=== PATIENT | female | born 1965 | race Caucasian/White ===

== ENCOUNTER → 2016-11-25 | Outpatient (CLI) | payer MEDICARE, MEDICAID ==
[~2016-11-25] MED LIST: AMOXICILLIN 50500 MG PO; ASPIRIN 81MG TA81 MG PO; ATENOLOL25 MG PO; ATENOLOL50 MG PO; AUGMENTIN 875 M1 TAB PO; BACTRIM DS 8001 TA1 PO; BRIMONIDINE 0.2%5 ML OP; CIPRO 250MG TA250 MG PO; CIPRO 500MG TA500 MG PO; CORTISPORIN (GE10 M1 OT; FLEXERIL5 MG PO; HABITROL21 MG/24 H TD; LIPITOR80 MG PO; LISINOPRIL 20MG20 MG NG; LORTAB 5/500 501 TAB PO; MACROBID 100MG100 MG PO; MEDROL 4MG. DOSE4 MG PO; MULTI VITAMINS1 TA1 PO; NAPROSYN 500MG500 MG PO; NAPROXEN250 MG PO; NEURONTIN 300M300 MG PO; PERCOCET 10 MG1 EACH PO; PERCOCET 5/3251 EACH PO; PHENERGAN 25MG.25 M1 PO; PRILOSEC40 MG PO; PROMETHAZINE12.5 M1 PO; SIMVASTATIN10 MG PO; TRAMADOL 50MG T50 MG PO; TRAZODONE100 MG PO; VITAMIN D1000 IU PO; VITAMIN D5000 IU PO; XANAX 1MG TABLET1 MG PO; XANAX2 MG PO; ZOCOR20 MG PO
[2016-11-25 16:53] LABS: AMPHETAMINES/METAMPHETAMINES NEGATIVE ng/mL (<1000)
== END ==
LOC: LAB 14:08
PROVIDERS: Nurse Practitioner Family
DX: F41.9 Anxiety disorder, unspecified (principal); Z79.899 Other long term (current) drug therapy

== ENCOUNTER 2017-03-10 17:38 | Emergency (ER) | payer MEDICARE, MEDICAID ==
[~2017-03-10] VITALS: Ht 170.2 cm; Wt 99.8 kg
[~2017-03-10 17:38] MED LIST changes: +AUGMENTIN 875-1 EACH PO; +CIPRODEX 0.3%-7.5 ML OT
--- OUTSIDE RECORDS SUMMARY | 2017-03-10 18:24 | External Medical Summary Rpt ---
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 AREAS 5 NAL REHAB D INES OTH THAN ASS[place] [address] COMBINED COMBINED THYROID 5 PHYSICIAN PHYSICIAN STIMULATI S LA S LA NG HORMONE TSH BLOOD 36487 COMBINED COMBINED COUNT 5 PHYSICIAN PHYSICIAN COMPLETE S LA S LA AUTO&AUTO DIFRNTL WBC SUSCEPTIB 23021 COMBINED COMBINED ILITY 5 PHYSICIAN PHYSICIAN STUDY S LA S LA ANTIMICRO BIAL DISK METHOD CULTURE 62831 COMBINED COMBINED BCT 5 PHYSICIAN PHYSICIAN ISOL&PRSM S LA S LA PTV ID ISOLATE EA URINE ELECTRICA A4595 EMPI INC EMPI INC L 4 STIMULATO R SUPPLIES 2 LEAD PER MONTH VISUAL 90704 SORAYA LOPEZ ERICKA FIELD XM 4 VISION UNI/BI CENTER W/INTERP EXTENDED EXAM FUNDUS 65387 SORAYA LIRA PHOTOGRAP 4 VISION VISION HY CENTER CENTER W/INTERPR ETATION & REPORT OPHTH 22374 SORAYA MYLES MEDICAL 4 VISION ANG XM&EVAL CENTER COMPRE NEW PT 1/> VST DETERMINA 28546 SORAYA MYLES TION 4 VISION ANG REFRACTIV CENTER E STATE DIAGNOSTI G0204 [place] JAVIER Guallpa 4 MEDICAL JASSON MAMMOGRAP IMAGING HY INCL ASS CAD WHEN PERF; BILAT ARTHROCEN 52659 [facility] TESIS 4 PHYSICIAN PHYSICIAN ASPIR&/IN S GROUP S GROUP J MAJOR JT/BURSA W/O US INJ J0702 [facility] PETTEY BETAMETHA 4 PHYSICIAN SUNIL SIMON S GROUP ACETATE & PHOSPHATE 3 [place] [address] [facility]PS PICKLESIM SURG 4 VITOR & ER [facility] PATHOLOGY [facility] GROSS&[place] [address] [facility] DINEROON INFUSION 4 [facility] THERAPY INC [place] [address] [facility] [facility] INFUSION 4 [facility] THERAPY/P INC INC ROPHYLAXI S /DX 1ST TO 1 [place] [address] [facility], SURG 4 [facility] PATHOLOGY GROSS&AREN ROSCOPIC EXAM COMPUTER- 86999 [place] JAVIER GONSALVES 4 MEDICAL JASSON DETECTION IMAGING DX ASS MAMMOGRAP HY DIAGNOSTI G0204 [facility] DUNCAN C 4 [facility] MAMMOGRAP INC INC HY INCL CAD WHEN PERF; BILAT RADEX 74650 [facility] DUNCAN HIPS 4 [facility] BILATERAL INC INC 2 VIEWS ANTEROPOS T PELVIS RADIOLOGI 24150 [facility] Gu[facility]pa 4 MEDICAL [facility] EXAMINATI IMAGING ON KNEE 3 ASS VIEWS ELECTRICA A4595 EMPI INC EMPI INC L 4 STIMULATO R SUPPLIES 2 LEAD PER MONTH ELECTRICA A4595 EMPI INC EMPI INC L 4 STIMULATO R SUPPLIES 2 LEAD PER MONTH INJECTION J0696 SWETHA POSADA 4 TRAVIS TRAVIS CEFTRIAXO NE SODIUM PER 250 MG ELECTRICA A4595 EMPI INC EMPI INC L 4 STIMULATO R SUPPLIES 2 LEAD PER MONTH DIAGNOSTI G0206 [place] DUNCAN C 3 [facility] MAMMOGRAP INC INC HY INCL CAD WHEN PERF; UNI EXTERNAL 93929 [facility] DUNCAN ECG 3 [facility] SCANNING INC INC ANALYSIS REPORT XTRNL ECG 68726 [place] LANDRY JR 3 [facility] S RHYTHM P W/I&R UP TO 48 HRS XTRNL ECG 12836 D[place] DUNCAN & 48 HR 3 [facility] RECORDING INC INC ECHO 55710 DAK[facility] DUNCAN TTHRC R-T 3 [facility] 2D INC INC W/WOM-MOD E COMPL SPEC&COLR D ECG 45443 JONNY IVY TRAVIS ROUTINE 3 [facility] W/LEAST PSC 12 LDS W/I&R NJX 76990 [facility] DX/THER 3 N N SBST [facility] EPIDURAL/ HOSPITA HOSPITA SUBARACH LUMBAR/SA CRAL THERAPEUT 15397 [facility] DUNCAN IC 3 [facility] INJECTION [place] [address] [place] DUNCAN INFUSION 3 [facility] THERAPY/P INC INC ROPHYLAXI S /DX 1ST TO 1 HR INJECTION J2405 [facility] DUNCAN 3 [facility] ONDANSETR INC INC ON HCL PER 1 MG GONADOTRO 78788 D[place] DUNCAN PIN 3 [facility] [place] [address] CHIPPS SEBAS SURG 3 VITOR & YARIEL PATHOLOGY DUBILIER GROSS&AREN ROSCOPIC EXAM ANES 98051 [facility] INTEG 3 ANESTH EXTREMITI OF THE ES ANT BLUE TRUNK & PERINEUM NOS EXC 38202 [facility] SOHAM CYST/ABER 3 PHYSICIAN ALLISON MUELLER BREAST TISSUE OPEN 1/> LESION BASIC 88794 DAK[place] DUNCAN METABOLIC 3 [facility] PANEL INC INC CALCIUM TOTAL ECG 02353 D[place] DUNCAN ROUTINE 3 [facility] ECG INC INC W/LEAST 12 LDS TRCG ONLY W/O I&R BLOOD 83269 DAKOTA DUNCAN COUNT 3 [facility] HOSP COMPLETE INC INC AUTO&AUTO DIFRNTL WBC COLLECTIO 87364 DAKOTA DUNCAN N VENOUS 3 [facility] HOSP BLOOD INC INC VENIPUNCT URE ECG 15193 DAKOTA MELISSAMIJemima ROUTINE 3 [facility] W/LEAST P 12 LDS I&R ONLY DIAGNOSTI G0204 DAK[place] DUNCAN C 3 [facility] HOSP MAMMOGRAP INC INC HY INCL CAD WHEN PERF; BILAT US BREAST 18583 DAKOTA DUNCAN REAL 3 [facility] HOSP TIME INC INC W/IMAGE DOCUMENTA TION RADIOLOGI 11618 [place] JAVIER Guallpa 3 MEDICAL JASS[facility] EXAMINATI IMAGING ON CHEST ASS SINGLE VIEW FRONTAL RADEX 26780 DAKOTA DUNCAN HAND 2 [facility] HOSP MINIMUM 3 INC INC VIEWS NJX 76588 [facility] DX/THER 2 N N SBST [facility] EPIDURAL/ HOSPITA HOSPITA SUBARACH LUMBAR/SA CRAL INJECTION J1040 [facility] 2 N N METHYLPRE [facility] DNISOLONE HOSPITA HOSPITA ACETATE 80 MG INJECTION J2250 [facility] 2 N N MIDAZOLAM [facility] HCL PER HOSPITA HOSPITA 1 MG RADEX 89395 [facility] SPINE 1 2 N N VIEW [facility] SPECIFY HOSPITA HOSPITA LEVEL FLUOR 42171 [facility] NEEDLE/CA 2 N N TH [facility] SPINE/PAR HOSPITA HOSPITA [place] [address] PATHOLOGY PATHOLOGY SURG 2 & & PATHOLOGY CYTOLOGY CYTOLOGY LAB LAB GROSS&AREN ROSCOPIC EXAM DSTR 05268 [facility] NROLYTC 2 N N AGNT [facility] PARVERTEB HOSPITA HOSPITA FCT SNGL LMBR/SACR AL INJECTION J3010 [facility] FENTANYL 2 N N CITRATE [facility] 0.1 MG HOSPITA HOSPITA FLUOR 89876 [facility] NEEDLE/CA 2 N N TH [facility] SPINE/PAR HOSPITA HOSPITA ASPINAL DX/THER ADDON DSTR 01758 [facility] NROLYTC 2 N N AGNT [facility] PARVERTEB HOSPITA HOSPITA FCT ADDL LMBR/SACR AL INJECTION J2250 [facility] 2 N N MIDAZOLAM [facility] HCL PER HOSPITA HOSPITA 1 MG RADEX 13432 [facility] SPINE 2 N N LUMBOSACR COMMUNITY COMMUNITY AL 2/3 HOSPITA HOSPITA VIEWS RADEX 81938 [facility] SPINE 2 N N LUMBOSACR COMMUNITY COMMUNITY AL HOSPITA HOSPITA MINIMUM 4 VIEWS DSTR 75339 [facility] NROLYTC 2 N N AGNT [facility] PARVERTEB HOSPITA HOSPITA FCT ADDL LMBR/SACR AL FLUOR 12013 [facility] NEEDLE/CA 2 N N TH [facility] SPINE/PAR HOSPITA HOSPITA ASPINAL DX/THER ADDON INJECTION J3010 [facility] FENT[facility]L 2 N N CITRATE [facility] 0.1 MG HOSPITA HOSPITA DSTR 59494 [facility] NROLYTC 2 N N AGNT [facility] PARVERTEB HOSPITA HOSPITA FCT SNGL LMBR/SACR AL FLUOR 85021 [facility] NEEDLE/CA 1 N N TH [facility] SPINE/PAR HOSPITA HOSPITA ASPINAL DX/THER [place] NJX 27755 [facility] DX/THER 1 AGT PVRT FACET JT LMBR/SAC 1 LEVEL NJX 69919 [facility] DX/THER 1 AGT PVRT FACET JT LMBR/SAC 2ND LEVEL RADEX 52218 [facility] SPINE 1 1 N N VIEW [facility] SPECIFY HOSPITA HOSPITA LEVEL NJX 03611 [facility] N[facility] DX/THER 1 AGT PVRT FACET JT LMBR/SAC 3+ LEVEL THERAPEUT 38365 PROFESSIO CROSSFIEL IC PX 1/> 1 NAL REHAB D INES AREAS ASSOC EACH 15 PSC MIN EXERCISES THERAPEUT 95718 PROFESSIO CROSSFIEL IC PX 1/> 1 NAL REHAB D INES AREAS ASSOC EACH 15 PSC MIN EXERCISES E-STIM G0283 PROFESSIO CROSSFIEL 1/> AREAS 1 NAL REHAB D INES OTH THAN ASSOC WND CARE PSC PART TX PLAN E-STIM G0283 PROFESSIO CROSSFIEL 1/> AREAS 1 NAL REHAB D INES OTH THAN ASSOC WND CARE PSC PART TX PLAN THERAPEUT 64350 PROFESSIO CROSSFIEL IC PX 1/> 1 NAL REHAB D INES AREAS ASSOC EACH 15 PSC MIN EXERCISES THERAPEUT 87430 PROFESSIO CROSSFIEL IC PX 1/> 1 NAL REHAB D INES AREAS ASSOC EACH 15 PSC MIN EXERCISES MANUAL 54828 PROFESSIO CROSSFIEL THERAPY 1 NAL REHAB D INES TQS 1/> ASSOC REGIONS PSC EACH 15 MINUTES THERAPEUT 72317 PROFESSIO CROSSFIEL IC PX 1/> 1 NAL REHAB D INES AREAS ASSOC EACH 15 PSC MIN EXERCISES E-STIM G0283 PROFESSIO CROSSFIEL 1/> AREAS 1 NAL REHAB D INES OTH THAN ASSOC WND CARE PSC PART TX PLAN E-STIM G0283 PROFESSIO CROSSFIEL 1/> AREAS 1 NAL REHAB D IENS OTH THAN ASSOC WND CARE PSC PART TX PLAN THERAPEUT 18965 PROFESSIO CROSSFIEL IC PX 1/> 1 NAL REHAB D INES AREAS ASSOC EACH 15 PSC MIN EXERCISES THERAPEUT 79624 PROFESSIO CROSSFIEL IC PX 1/> 1 NAL REHAB D INES AREAS ASSOC EACH 15 PSC MIN EXERCISES E-STIM G0283 PROFESSIO CROSSFIEL 1/> AREAS 1 NAL REHAB D INES OTH THAN ASSOC WND CARE PSC PART TX PLAN E-STIM G0283 PROFESSIO CROSSFIEL 1/> AREAS 1 NAL REHAB D INES OTH THAN ASSOC WND CARE PSC PART TX PLAN THERAPEUT 18328 PROFESSIO CROSSFIEL IC PX 1/> 1 NAL REHAB D INES AREAS ASSOC EACH 15 PSC MIN EXERCISES THERAPEUT 75638 PROFESSIO CROSSFIEL IC PX 1/> 1 NAL REHAB D INES AREAS ASSOC EACH 15 PSC MIN EXERCISES E-STIM G0283 PROFESSIO CROSSFIEL 1/> AREAS 1 NAL REHAB D INES OTH THAN ASSOC WND CARE PSC PART TX PLAN MANUAL 97726 PROFESSIO CROSSFIEL THERAPY 1 NAL REHAB D INES TQS 1/> ASSOC REGIONS PSC EACH 15 MINUTES THERAPEUT 11785 PROFESSIO CROSSFIEL IC PX 1/> 1 NAL REHAB D INES AREAS ASSOC EACH 15 PSC MIN EXERCISES E-STIM G0283 PROFESSIO CROSSFIEL 1/> AREAS 1 NAL REHAB D INES OTH THAN ASSOC WND CARE PSC PART TX PLAN E-STIM G0283 PROFESSIO CROSSFIEL 1/> AREAS 1 NAL REHAB D INES OTH THAN ASSOC WND CARE PSC PART TX PLAN THERAPEUT 23238 PROFESSIO CROSSFIEL IC PX 1/> 1 NAL REHAB D INES AREAS ASSOC EACH 15 PSC MIN EXERCISES MANUAL 69210 PROFESSIO CROSSFIEL THERAPY 1 NAL REHAB D INES TQS 1/> ASSOC REGIONS PSC EACH 15 MINUTES MANUAL 38793 PROFESSIO CROSSFIEL THERAPY 1 NAL REHAB D INES TQS 1/> ASSOC REGIONS PSC EACH 15 MINUTES THERAPEUT 76914 PROFESSIO CROSSFIEL IC PX 1/> 1 NAL REHAB D INES AREAS ASSOC EACH 15 PSC MIN EXERCISES E-STIM G0283 PROFESSIO CROSSFIEL 1/> AREAS 1 NAL REHAB D INES OTH THAN ASSOC WND CARE PSC PART TX PLAN E-STIM G0283 PROFESSIO CROSSFIEL 1/> AREAS 1 NAL REHAB D INES OTH THAN ASSOC WND CARE PSC PART TX PLAN THERAPEUT 87230 PROFESSIO CROSSFIEL IC PX 1/> 1 NAL REHAB D INES AREAS ASSOC EACH 15 PSC MIN EXERCISES MANUAL 07648 PROFESSIO CROSSFIEL THERAPY 1 NAL REHAB D INES TQS 1/> ASSOC REGIONS PSC EACH 15 MINUTES MANUAL 82147 PROFESSIO CROSSFIEL THERAPY 1 NAL REHAB D INES TQS 1/> ASSOC REGIONS PSC EACH 15 MINUTES THERAPEUT 64221 PROFESSIO CROSSFIEL IC PX 1/> 1 NAL REHAB D INES AREAS ASSOC EACH 15 PSC MIN EXERCISES PHYSICAL 77501 PROFESSIO CROSSFIEL THERAPY 1 NAL REHAB D INES EVALUATIO ASSOC N PSC OPHTH 66141 [facility] 1 VISION ANG XM&EVAL COMPRE NEW PT 1/> VST NJX 65530 [facility] TRA DX/THER 1 [place] SBST ORTHOPAED EPIDURAL/ ICS PLC SUBARACH LUMBAR/SA CRAL INJECTION J1040 [facility] TRA 1 [place] METHYLPRE ORTHOPAED DNISOLONE ICS PLC ACETATE 80 MG INJECTION J1040 [facility] TRA 1 [place] METHYLP[place] ORTHOPAED DNISOLONE ICS PLC ACETATE 80 MG NJX 29979 [facility] SAENZ TRA DX/THER 1 [place] SBST ORTHOPAED EPIDURAL/ ICS PLC SUBARACH LUMBAR/SA CRAL NJX 94140 [facility] SAENZ TRA DX/THER 1 [place] SBST ORTHOPAED EPIDURAL/ ICS PLC SUBARACH LUMBAR/SA CRAL INJECTION J1040 [facility] SAENZ TRA 1 [place] METHYLPRE ORTHOPAED DNISOLONE ICS PLC ACETATE 80 MG LIG&DIV 65055 CARDIOVAS BRIA LONG SAPH 1 ULAR & CARMEN VEIN THORACIC SAPHFEM ASS JUNCT/INT ERRUPJ MODERATE 90462 CARDIOVAS BRIA SEDATJ 1 ULAR & CARMEN SAME THORACIC PHYS/QHP ASS 5/>YRS INIT 30 MIN ENDOVEN 21541 CARDIOVAS BRIA ABLTJ 1 ULAR & CARMEN INCMPTNT THORACIC VEIN XTR ASS LASER 1ST VEIN NON-INVAS 53566 [place] DUNCAN YAAKOV 1 [facility] PHYSIOLOG INC INC IC STUDY EXTREMITY 3 LEVLS DUP-SCAN 51070 [place] DUNCAN XTR VEINS 1 [facility] COMPLETE INC INC BILATERAL STUDY MRI 74419 CENTRAL SAENZ TRA SPINAL 1 [place] CANAL ORTHOPAED LUMBAR ICS PLC W/O CONTRAST MATERIAL MRI 45119 CENTRAL SAENZ TRA PELVIS 1 [place] W/O ORTHOPAED CONTRAST ICS PLC MATERIAL RADEX HIP 17691 [facility] PATHAKUTCHER 1 MEDICAL JASSON UNILATERA IMAGING L ASS COMPLETE MINIMUM 2 VIEWS RADEX 61351 [facility] HERRERA SPINE 1 MEDICAL JASSON LUMBOSACR IMAGING AL ASS MINIMUM 4 VIEWS RADEX 06157 [facility] HERRERA FOOT 1 MEDICAL JASSON COMPLETE IMAGING MINIMUM 3 ASS VIEWS Encounters Encounter Start End Date Code Location Performer Type Date OFFICE 82773 [facility] TALIA ENRIQUEZ OUTPATIEN 7 7 PHYSICIAN T VISIT S GROUP 10 MINUTES [facility]PAT[facility] T [facility] [place] - 7 7 [facility] OUTPATIEN INC T OFFICE 96731 [facility] JOB OUTPATIEN 7 7 PHYSICIAN T VISIT S GROUP 25 MINUTES OFFICE 74869 SORAAY SCIFRJAYDA OUTPATIEN 7 7 VISION T VISIT CENTER 15 MINUTES [facility] - 7 7 [facility] OUTPATIEN INC T OFFICE 39505 SWETHA POSADA OUTPATIEN 7 7 T VISIT 15 MINUTES OFFICE 70029 [facility] 7 7 T VISIT 15 MINUTES OFFICE 99001 [facility] JOB OUTPATIEN 6 6 PHYSICIAN DAQUAN T VISIT S GROUP 15 MINUTES OFFICE 64240 [facility] SCIES OUTPATIEN 6 6 VISION ANG T VISIT CENTER 15 MINUTES [facility] - 6 6 [facility] OUTPATIEN INC T OFFICE 95284 [place] [facility] OUTPATIEN 6 6 TRAVIS TRAVIS T VISIT 15 MINUTES EMERGENCY 47101 [facility] 6 6 MEM [facility] DEPARTMEN INC T VISIT HIGH/URGE NT SEVERITY [facility] - 6 6 [facility] OUTPATIEN INC T EMERGENCY 93439 [facility] 6 6 PHYSICIAN SHERRI VISIT S, [facility] HIGH SEVERITY& THREAT [facility] [place] - 6 6 [facility] OUTPATIEN INC T OFFICE 45010 [place] SC[facility] OUTPATIEN 6 6 [facility]ISION ANG T VISIT CENTER 15 MINUTES OFFICE 38197 [place] [facility] OUTPATIEN 6 6 [facility] 15 MINUTES OFFICE 11230 ARNSHWETA EVANSHWETA OUTPATIEN 6 6 TRAVIS TRAVIS T VISIT 15 MINUTES OFFICE 15765 [place] [facility] OUTPATIEN 6 6 [facility] 15 MINUTES OFFICE 92432 [place] [facility] OUTPATIEN 6 6 [facility] 15 MINUTES OFFICE 53255 EVANSHWETA SWETHA OUTPATIEN 6 6 TRAVIS TRAVIS T VISIT 15 MINUTES OFFICE 59329 SWETHA POSADA OUTPATIEN 5 5 TRAVIS TRAVIS T VISIT 15 MINUTES OFFICE 03675 [facility] SCHULSTAD OUTPATIEN 5 5 PHYSICIAN CAM T VISIT S GROUP 15 MINUTES [facility] - 5 5 [facility] OUTPATIEN INC T OFFICE 19281 [facility] OUT[facility] 5 5 PAIN T VISIT MANAGEMEN 15 T MINUTES OFFICE 62060 [facility] SCHULSTAD OUTPATIEN 5 5 PHYSICIAN CAM T VISIT S GROUP 15 MINUTES [facility] - 5 5 [facility] OUTPATIEN INC T OFFICE 73115 NO [facility] OUTPATIEN 5 5 PAIN T VISIT MANAGEMEN 15 T MINUTES [facility] - 5 5 [facility] INPATIENT [facility] - 5 5 [facility] OUTPATIEN INC T OFFICE 33463 [facility] OUTPATIEN 5 5 PAIN T VISIT MANAGEMEN 15 T MINUTES [facility] - 5 5 [facility] OUTPATIEN INC T [facility] [place] - 5 5 [facility] OUTPATIEN INC T [facility] - 5 5 [facility] OUTPATIEN INC T OFFICE 09901 [facility] SCHULSTAD OUTPATIEN 5 5 PHYSICIAN CAM T VISIT S GROUP 25 MINUTES [facility] - 5 5 [facility] OUTPATIEN INC T OFFICE 96932 [facility] PETTEY OUTPATIEN 5 5 PHYSICIAN JAM T VISIT S GROUP 15 MINUTES OFFICE 66117 SORAYA LOPEZ [facility] OUTPATIEN 4 4 VISION T VISIT CENTER 15 MINUTES [facility] - 4 4 [facility] OUTPATIEN INC T OFFICE 67082 [facility] SCHULST OUTPATIEN 4 4 PHYSICIAN ALLISON T VISIT S GROUP 10 MINUTES [facility] - 4 4 [facility] OUTPATIEN INC T OFFICE 55414 SWETHA SHAHPATIEN 4 4 TRAVIS TRAVIS T VISIT 15 MINUTES OFFICE 80643 SWETHA SHAHPATIEN 4 4 TRAVIS TRAVIS T VISIT 15 MINUTES [facility] - 4 4 [facility] OUTPATIEN INC T OFFICE 64929 [facility] PETTEY OUTPATIEN 4 4 PHYSICIAN JAM T NEW 30 S GROUP MINUTES [facility] - 4 4 [facility] OUTPATIEN INC T OFFICE 95814 SWETHA CORONAEN 4 4 TRAVIS TRAVIS T VISIT 15 MINUTES OFFICE 93550 SWETHA CORONAEN 4 4 TRAVIS TRAVIS T VISIT 15 MINUTES OFFICE 27247 SW[facility] POSADA OUTPATIEN 3 3 TRAVIS TRAVIS T VISIT 15 MINUTES [facility] [place] [facility] [place] [facility] T OFFICE 20750 JONNY BIJU TRAVIS OUTPATIEN 3 3 RAJANI T NEW 45 CLINIC MINUTES PSC OFFICE 28321 SW[facility]ADA OUTPATIEN 3 3 TRAVIS TRAVIS T VISIT 15 MINUTES [facility] - 3 3 N OUTPATIEN COMMUNITY T HOSPITA OFFICE 23238 SWETHA POSADA OUTPATIEN 3 3 TRAVIS TRAVIS T VISIT 15 MINUTES OFFICE 53551 SW[facility]ADA OUTPATIEN 3 3 TRAVIS TRAVIS T VISIT 15 MINUTES OFFICE 04133 SWETHA POSADA OUTPATIEN 3 3 TRAVIS TRAVIS T VISIT 15 MINUTES [facility] [place] [facility] [place] [facility] 3 [facility] T OFFICE 28883 Ramu RUOSSEAU OUTPATIEN 3 3 SOHAM Mcginnis 45 MD PSC MINUTES [facility] [place] [facility] T OFFICE 03646 EVANSHWETA SWETHA OUTPATIEN 3 3 TRAVIS TRAVIS T VISIT 15 MINUTES EMERGENCY 26410 UNIVERSIT 2 2 Y [facility] HOSPITAL T VISIT LOW/MODER SEVERITY HOSPITAL [facility] - 2 2 Y [facility] T EMERGENCY 11988 FELIPE MAURO 2 2 MEDICAL RYA [facility] SERV T VISIT FOUNDATIO MODERATE SEVERITY EMERGENCY 79504 DAVIAN HOLCOMB DEPT 2 2 EMERGENCY JUAN ANTONIO VISIT SERVICES HIGH SEVERITY& THREAT [facility] [place] [facility] 2 [facility] T EMERGENCY 61215 [place] 2 2 [facility] INC T VISIT HIGH/URGE NT SEVERITY OFFICE 24876 SWETHA POSADA OUTPATIEN 2 2 TRAVIS TRAVIS T VISIT 15 MINUTES OFFICE 63803 SWETHA POSADA OUTPATIEN 2 2 TRAVIS TRAVIS T VISIT 15 MINUTES [facility] [place] [address] [facility] 46425 [place] [facility] OUTPATIEN 2 2 VAL[facility] NAN T VISIT INTERNAL 10 MEDI MINUTES OFFICE 31945 SWETHA POSADA OUTPATIEN 2 2 TRAVIS TRAVIS T VISIT 15 [facility]UTES [facility] [place] [address] [facility] [place] [address] [facility] [place] [address] [facility]146 [facility] 1 1 [place] [facility]AED 15 [facility] MINUTES OFFICE 79308 [facility] [place] [facility]ED 15 [facility] MIN[facility]ES OFFICE 29329 [facility] OUT[facility] 1 1 [place] MANJ[place] VISIT ORTHOPAED 15 [facility] MIN[facility]ES OFFICE 41591 [facility] 1 1 [place] VISIT ORTHOPAED 15 [facility] MINUTES OFFICE 37364 [facility] 1 1 [place] [facility] VISIT ORTHOPAED 15 [facility] MINUTES [facility] [place] [facility] T [facility] [place] [facility] T OFFICE 78628 [facility] LYNANG KIRSTIE OUTPATIEN 1 1 CARDIOTHO T NEW 45 RACIC MINUTES SURGI OFFICE 86825 [facility] [place] MAN[place]IT [place] JONNY 30 ORTHOPAED MINUTES [facility]
--- OUTSIDE RECORDS SUMMARY | 2017-03-10 18:24 | External Medical Summary Rpt ---
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 [facility] 2D INC INC W/WOM-MOD E COMPL SPEC&COLR D ECG 43184 JONNY IVY TRAVIS ROUTINE 3 [facility] CLINIC W/LEAST PSC 12 LDS W/I&R NJX 73638 [facility] DX/THER 3 N N SBST [facility] EPIDURAL/ HOSPITA HOSPITA SUBARACH LUMBAR/SA CRAL THERAPEUT 21939 [place] [facility] IC 3 [facility] INJECTION [place] [address] [place] [facility] INFUSION 3 [facility] THERAPY/P INC INC ROPHYLAXI S /DX 1ST TO 1 HR INJECTION J2405 [place] DUNCAN 3 [facility] ONDANSETR INC INC ON HCL PER 1 MG GONADOTRO 03563 [place] [facility] PIN 3 [facility] [place] [address] CHIPPS SEBAS SURG 3 VITOR & YARIEL PATHOLOGY DUBILIER GROSS&AREN ROSCOPIC EXAM ANES 40953 [facility] INTEG 3 ANESTH EXTREMITI OF THE ES ANT BLUE TRUNK & PERINEUM NOS EXC 44449 [facility] SOHAM CYST/ABER 3 PHYSICIAN ALLISON MUELLER BREAST TISSUE OPEN 1/> LESION BASIC 04856 [place] [facility] METABOLIC 3 [facility] PANEL INC INC CALCIUM TOTAL ECG 71669 [place] [facility] ROUTINE 3 [facility] ECG INC INC W/LEAST 12 LDS TRCG ONLY W/O I&R BLOOD 02331 [place] [facility] COUNT 3 [facility] HOSP COMPLETE INC INC AUTO&AUTO DIFRNTL WBC COLLECTIO 00542 [place] [facility] N VENOUS 3 [facility] HOSP BLOOD INC INC VENIPUNCT URE ECG 38432 [place] MELISSAMIJemima ROUTINE 3 [facility] W/LEAST P 12 LDS I&R ONLY DIAGNOSTI G0204 [place] [facility] C 3 [facility] HOSP MAMMOGRAP INC INC HY INCL CAD WHEN PERF; BILAT US BREAST 43533 [place] [facility] REAL 3 [facility] HOSP TIME INC INC W/IMAGE DOCUMENTA TION RADIOLOGI 19618 NEVADA JAVIER Guallpa 3 MEDICAL [facility] EXAMINATI IMAGING ON CHEST ASS SINGLE VIEW FRONTAL RADEX 43852 [place] [facility] HAND 2 [facility] HOSP MINIMUM 3 INC [place] VIEWS NJX 28129 [facility] DX/THER 2 N N SBST [facility] EPIDURAL/ HOSPITA HOSPITA SUBARACH LUMBAR/SA CRAL INJECTION J1040 [facility] 2 N N METHYLPRE [facility] DNISOLONE HOSPITA HOSPITA ACETATE 80 MG INJECTION J2250 [facility] 2 N N MIDAZOLAM [facility] HCL PER HOSPITA HOSPITA 1 MG RADEX 95331 [facility] SPINE 1 2 N N VIEW [facility] SPECIFY HOSPITA HOSPITA LEVEL FLUOR 21663 [facility] NEEDLE/CA 2 N N TH [facility] SPINE/PAR HOSPITA HOSPITA ASPIN[place] [address] PATHOLOGY PATHOLOGY SURG 2 & & PATHOLOGY CYTOLOGY CYTOLOGY LAB LAB GROSS&AREN ROSCOPIC EXAM DSTR 54529 [facility] NROLYTC 2 N N AGNT [facility] PARVERTEB HOSPITA HOSPITA FCT SNGL LMBR/SACR AL INJECTION J3010 [facility] FENTANYL 2 N N CITRATE [facility] 0.1 MG HOSPITA HOSPITA FLUOR 15498 [facility] NEEDLE/CA 2 N N TH [facility] SPINE/PAR HOSPITA HOSPITA ASPINAL DX/THER ADDON DSTR 25039 [facility] NROLYTC 2 N N AGNT [facility] PARVERTEB HOSPITA HOSPITA FCT ADDL LMBR/SACR AL INJECTION J2250 [facility] 2 N N [place] [facility] HCL PER HOSPITA HOSPITA 1 MG RADEX 03883 [facility] SPINE 2 N N LUMBOSACR [facility] AL 2/3 HOSPITA HOSPITA VIEWS RADEX 86063 [facility] SPINE 2 N N LUMBOSACR [facility]ITY COMMUNITY AL HOSPITA HOSPITA MINIMUM 4 VIEWS DSTR 82629 [facility] NROLYTC 2 N N AGNT [facility] PAR[place]TEB HOSPITA HOSPITA FCT ADDL LMBR/SACR AL FLUOR 62682 [facility] NEEDLE/CA 2 N N TH [facility] SPINE/PAR HOSPITA HOSPITA ASPINAL DX/THER ADDON INJECTION J3010 [facility] FENTANYL 2 N N CITRATE [facility] 0.1 MG HOSPITA HOSPITA DSTR 24874 [facility] NROLYTC 2 N N AGNT [facility] PARVERTEB HOSPITA HOSPITA FCT SNGL LMBR/SACR AL FLUOR 93984 [facility] NEEDLE/CA 1 N N TH [facility] SPINE/PAR HOSPITA HOSPITA ASPINAL DX/THER ADDON NJX 32812 NATHAN HAM NATHAN HAM DX/THER 1 AGT PVRT FACET JT LMBR/SAC 1 LEVEL NJX 66951 NATHAN HAM NATHAN HAM DX/THER 1 AGT PVRT FACET JT LMBR/SAC 2ND LEVEL RADEX 11945 [facility] SPINE 1 1 N N VIEW [facility] SPECIFY HOSPITA HOSPITA LEVEL NJX 00038 NATHAN HAM NATHAN HAM DX/THER 1 AGT PVRT FACET JT LMBR/SAC 3+ LEVEL THERAPEUT 60657 PROFESSIO CROSSFIEL IC PX 1/> 1 NAL REHAB D INES AREAS ASSOC EACH 15 PSC MIN EXERCISES THERAPEUT 80344 PROFESSIO CROSSFIEL IC PX 1/> 1 NAL REHAB D INES AREAS ASSOC EACH 15 PSC MIN EXERCISES E-STIM G0283 PROFESSIO CROSSFIEL 1/> AREAS 1 NAL REHAB D INES OTH THAN ASSOC WND CARE PSC PART TX PLAN E-STIM G0283 PROFESSIO CROSSFIEL 1/> AREAS 1 NAL REHAB D INES OTH THAN ASSOC WND CARE PSC PART TX PLAN THERAPEUT 25524 PROFESSIO CROSSFIEL IC PX 1/> 1 NAL REHAB D INES AREAS ASSOC EACH 15 PSC MIN EXERCISES THERAPEUT 83386 PROFESSIO CROSSFIEL IC PX 1/> 1 NAL REHAB D INES AREAS ASSOC EACH 15 PSC MIN EXERCISES MANUAL 50245 PROFESSIO CROSSFIEL THERAPY 1 NAL REHAB D INES TQS 1/> ASSOC REGIONS PSC EACH 15 MINUTES THERAPEUT 85598 PROFESSIO CROSSFIEL IC PX 1/> 1 NAL REHAB D INES AREAS ASSOC EACH 15 PSC MIN EXERCISES E-STIM G0283 PROFESSIO CROSSFIEL 1/> AREAS 1 NAL REHAB D INES OTH THAN ASSOC WND CARE PSC PART TX PLAN E-STIM G0283 PROFESSIO CROSSFIEL 1/> AREAS 1 NAL REHAB D INES OTH THAN ASSOC WND CARE PSC PART TX PLAN THERAPEUT 32373 PROFESSIO CROSSFIEL IC PX 1/> 1 NAL REHAB D INES AREAS ASSOC EACH 15 PSC MIN EXERCISES THERAPEUT 11596 PROFESSIO CROSSFIEL IC PX 1/> 1 NAL REHAB D INES AREAS ASSOC EACH 15 PSC MIN EXERCISES E-STIM G0283 PROFESSIO CROSSFIEL 1/> AREAS 1 NAL REHAB D INES OTH THAN ASSOC WND CARE PSC PART TX PLAN E-STIM G0283 PROFESSIO CROSSFIEL 1/> AREAS 1 NAL REHAB D INES OTH THAN ASSOC WND CARE PSC PART TX PLAN THERAPEUT 27792 PROFESSIO CROSSFIEL IC PX 1/> 1 NAL REHAB D INES AREAS ASSOC EACH 15 PSC MIN EXERCISES THERAPEUT 52570 PROFESSIO CROSSFIEL IC PX 1/> 1 NAL REHAB D INES AREAS ASSOC EACH 15 PSC MIN EXERCISES E-STIM G0283 PROFESSIO CROSSFIEL 1/> AREAS 1 NAL REHAB D INES OTH THAN ASSOC WND CARE PSC PART TX PLAN MANUAL 92975 PROFESSIO CROSSFIEL THERAPY 1 NAL REHAB D INES TQS 1/> ASSOC REGIONS PSC EACH 15 MINUTES THERAPEUT 43740 PROFESSIO CROSSFIEL IC PX 1/> 1 NAL REHAB D INES AREAS ASSOC EACH 15 PSC MIN EXERCISES E-STIM G0283 PROFESSIO CROSSFIEL 1/> AREAS 1 NAL REHAB D INES OTH THAN ASSOC WND CARE PSC PART TX PLAN E-STIM G0283 PROFESSIO CROSSFIEL 1/> AREAS 1 NAL REHAB D INES OTH THAN ASSOC WND CARE PSC PART TX PLAN THERAPEUT 94930 PROFESSIO CROSSFIEL IC PX 1/> 1 NAL REHAB D INES AREAS ASSOC EACH 15 PSC MIN EXERCISES MANUAL 77790 PROFESSIO CROSSFIEL THERAPY 1 NAL REHAB D INES TQS 1/> ASSOC REGIONS PSC EACH 15 MINUTES MANUAL 11753 PROFESSIO CROSSFIEL THERAPY 1 NAL REHAB D INES TQS 1/> ASSOC REGIONS PSC EACH 15 MINUTES THERAPEUT 95431 PROFESSIO CROSSFIEL IC PX 1/> 1 NAL REHAB D INES AREAS ASSOC EACH 15 PSC MIN EXERCISES E-STIM G0283 PROFESSIO CROSSFIEL 1/> AREAS 1 NAL REHAB D INES OTH THAN ASSOC WND CARE PSC PART TX PLAN E-STIM G0283 PROFESSIO CROSSFIEL 1/> AREAS 1 NAL REHAB D INES OTH THAN ASSOC WND CARE PSC PART TX PLAN THERAPEUT 32873 PROFESSIO CROSSFIEL IC PX 1/> 1 NAL REHAB D INES AREAS ASSOC EACH 15 PSC MIN EXERCISES MANUAL 79578 PROFESSIO CROSSFIEL THERAPY 1 NAL REHAB D INES TQS 1/> ASSOC REGIONS PSC EACH 15 MINUTES MANUAL 57770 PROFESSIO CROSSFIEL THERAPY 1 NAL REHAB D INES TQS 1/> ASSOC REGIONS PSC EACH 15 MINUTES THERAPEUT 58222 PROFESSIO CROSSFIEL IC PX 1/> 1 NAL REHAB D IENS AREAS ASSOC EACH 15 PSC MIN EXERCISES PHYSICAL 23625 PROFESSIO CROSSFIEL THERAPY 1 NAL REHAB D INES EVALUATIO ASSOC N PSC OPHTH 78963 [facility] VISION ANG XM&EVAL COMPRE NEW PT 1/> VST NJX 01552 CENTRAL SAENZ TRA DX/THER 1 [place] SBST ORTHOPAED EPIDURAL/ [facility]CS PLC SUBARACH LUMBAR/SA CRAL INJECTION J1040 [facility]EN[facility] SAENZ TRA 1 [place] METHYLPRE ORTHOPAED DNISOLONE ICS PLC ACETATE 80 MG INJECTION J1040 [facility]EN[facility] SAENZ TRA 1 [place] METH[place]LP[place] ORTHOPAED DNISOLONE ICS PLC ACETATE 80 MG NJX 91373 CENTRAL SAENZ TRA DX/THER 1 [place] SBST ORTHOPAED EPIDURAL/ [facility]CS PLC SUBARACH LUMBAR/SA CRAL NJX 33279 CENTRAL SAENZ TRA DX/THER 1 [place] SBST ORTHOPAED EPIDURAL/ [facility]CS PLC SUBARACH LUMBAR/SA CRAL INJECTION J1040 CENTRAL SAENZ TRA 1 [place] METHYLPRE ORTHOPAED DNISOLONE ICS PLC ACETATE 80 MG LIG&DIV 75647 CARDIOVAS BRIA LONG SAPH 1 ULAR & CARMEN VEIN THORACIC SAPHFEM ASS JUNCT/INT ERRUPJ MODERATE 93530 CARDIOVAS BRIA SEDATJ 1 ULAR & CARMEN SAME THORACIC PHYS/QHP ASS 5/>YRS INIT 30 MIN ENDOVEN 20524 CARDIOVAS BRIA ABLTJ 1 ULAR & CARMEN INCMPTNT THORACIC VEIN XTR ASS LASER 1ST VEIN NON-INVAS 49056 [place] [facility] YAAKOV 1 [facility] PHYSIOLOG INC INC IC STUDY EXTREMITY 3 LEVLS DUP-SCAN 91114 [place] [facility] XTR VEINS 1 [facility] COMPLETE INC INC BILATERAL STUDY MRI 34502 CENTRAL SAENZ TRA SPINAL 1 [place] CANAL ORTHOPAED LUMBAR ICS PLC W/O CONTRAST MATERIAL MRI 61584 CENTRAL SAENZ TRA PELVIS 1 [place] W/O ORTHOPAED CONTRAST ICS PLC MATERIAL RADEX HIP 31339 [facility] PATHAKUTCHER 1 MEDICAL JASSON UNILATERA IMAGING L ASS COMPLETE MINIMUM 2 VIEWS RADEX 68744 STARR HERRERA SPINE 1 MEDICAL JASSON LUMBOSACR IMAGING AL ASS MINIMUM 4 VIEWS RADEX 84464 STARR HERRERA FOOT 1 MEDICAL JASS[facility] COMPLETE IMAGING MINIMUM 3 ASS VIEWS Encounters Encounter Start End Date Code Location Performer Type Date OFFICE 77974 [facility] TALIA ENRIQUEZ OUTPATIEN 7 7 PHYSICIAN T VISIT S GROUP 10 [facility]UTES [facility] [place] [facility] 7 [facility] T OFFICE 04785 [facility] JOB OUTPATIEN 7 7 PHYSICIAN T VISIT S GROUP 25 MINUTES OFFICE 29461 SORAYA SCIFRJAYDA OUTPATIEN 7 7 [facility] 15 MINUTES [facility] [place] [facility] 7 7 [facility] INC T OFFICE 99447 SWETHA POSADA OUTPATIEN 7 7 T VISIT 15 MINUTES OFFICE 30140 SIERRA TUCSONSHWETA POSADA OUTPATIEN 7 7 T VISIT 15 MINUTES OFFICE 42855 [facility] JOB OUTPATIEN 6 6 PHYSICIAN DAQUAN T VISIT S GROUP 15 MINUTES OFFICE 51834 [facility] T [facility] 15 MINUTES [facility] [place] - [facility] 6 [facility] OUTPATIEN INC T OFFICE 83672 FORBES SWETHA OUTPATIEN 6 6 TRAVIS TRAVIS T VISIT 15 MINUTES EMERGENCY 71330 [place] 6 6 [facility] DEPARTMEN INC T VISIT HIGH/URGE NT SEVERITY [facility] [place] - 6 6 [facility] OUTPATIEN INC T EMERGENCY 82130 [facility] PH[facility]ICIAN SHERRI VISIT S, [facility] HIGH SEVERITY& [facility] [place] - 6 6 [facility] OUTPATIEN INC T OFFICE 05418 [place] SCIFRES OUTPATIEN 6 6 [facility] T [facility]IT CENTER 15 MINUTES OFFICE 58075 [place] [facility] OUTPATIEN 6 6 [facility] 15 MINUTES OFFICE 12421 ARNSHWETA EVANSHWETA OUTPATIEN 6 6 TRAVIS TRAVIS T VISIT 15 MINUTES OFFICE 31810 [place] SCIFRES OUTPATIEN 6 6 [facility] 15 MINUTES OFFICE 01746 [place] SCIFRES OUTPATIEN 6 6 [facility] 15 MINUTES OFFICE 78704 EVANSHWETA SWETHA OUTPATIEN 6 6 TRAVIS TRAVIS T VISIT 15 MINUTES OFFICE 68549 SWETHA POSADA OUTPATIEN 5 5 TRAVIS TRAVIS T VISIT 15 MINUTES OFFICE 45265 [facility] SCHULSTAD OUTPATIEN 5 5 PHYSICIAN CAM T VISIT S GROUP 15 MINUTES [facility] [place] - 5 5 [facility] OUTPATIEN INC T OFFICE 83050 [facility] OUTPATIEN 5 5 PAIN T VISIT MANAGEMEN 15 T MINUTES OFFICE 58525 [facility] SCHULSTAD OUTPATIEN 5 5 PHYSICIAN CAM T VISIT S GROUP 15 MINUTES [facility] [place] - 5 5 [facility] OUTPATIEN INC T OFFICE 08935 NO [facility] OUTPATIEN 5 5 PAIN T VISIT MANAGEMEN 15 T MINUTES [facility] [place] - 5 5 [facility] INPATIENT [facility] [place] - 5 5 [facility] OUTPATIEN INC T OFFICE 42819 NO [facility] OUTPATIEN 5 5 PAIN T VISIT MANAGEMEN 15 T MINUTES [facility] [place] - 5 5 [facility] OUTPAT[facility] INC T [facility] [place] - 5 5 [facility] OUTPATI[facility] INC T [facility] [place] - 5 5 [facility] OUTPATIEN INC T OFFICE 51345 [facility] SCHULSTAD OUTPATIEN 5 5 PHYSICIAN CAM T VISIT S GROUP 25 MINUTES [facility] [place] - 5 5 [facility] OUTPATIEN INC T OFFICE 27059 [facility] PETTEY OUTPATIEN 5 5 PHYSICIAN JAM T VISIT S GROUP 15 MINUTES OFFICE 07010 SORAYA LOPEZ [facility] OUTPATIEN 4 4 VISION T VISIT CENTER [address] [facility] [place] - 4 4 [facility] OUTPATIEN INC T OFFICE 92385 [facility] SCHULST OUTPATIEN 4 4 PHYSICIAN ALLISON T VISIT S GROUP 10 MINUTES [facility] [place] - 4 4 [facility] OUTPATIEN INC T OFFICE 68411 SWETHA SHAHPATIEN 4 4 TRAVIS TRAVIS T VISIT 15 MINUTES OFFICE 86706 SWETHA SHAHPATIEN 4 4 TRAVIS TRAVIS T VISIT 15 MINUTES [facility] [place] - 4 4 [facility] OUTPATIEN INC T OFFICE 78061 [facility] PETTEY OUTPATIEN 4 4 PHYSICIAN JAM T NEW 30 S GROUP MINUTES [facility] [place] - 4 4 [facility] OUTPATIEN INC T OFFICE 98975 SWETHA CORONAEN 4 4 TRAVIS TRAVIS T VISIT 15 MINUTES OFFICE 89111 SWETHA CORONAEN 4 4 TRAVIS TRAVIS T VISIT 15 MINUTES OFFICE 18297 SWETHA POSADA OUTPATIEN 3 3 TRAVIS TRAVIS T VISIT 15 MINUTES [facility] [place] [facility] 3 [facility] OUTPATIEN INC [facility] [place] [facility] 3 3 [facility] OUTPATIEN INC T OFFICE 33243 JONNY BIJU TRAVIS OUTPATIEN 3 3 RAJANI T NEW 45 CLINIC MINUTES PSC OFFICE 29944 SWETHA POSADA OUTPATIEN 3 3 TRAVIS TRAVIS T VISIT 15 MINUTES HOSPITAL [facility] - 3 3 N OUTPATIEN COMMUNITY T HOSPITA OFFICE 56315 SWETHA POSADA OUTPATIEN 3 3 TRAVIS TRAVIS T VISIT 15 MINUTES OFFICE 08711 SWETHA POSADA OUTPATIEN 3 3 TRAVIS TRAVIS T VISIT 15 MINUTES OFFICE 03918 SWETHA POSADA OUTPATIEN 3 3 TRAVIS TRAVIS T VISIT 15 MINUTES [facility] [place] [facility]IEN [facility] [place] - 3 3 [facility] OUTPATIEN INC T OFFICE 94915 Ramu ROUSSEAU OUTPATIEN 3 3 SOHAM Mcginnis 45 MD PSC MINUTES [facility] [place] - 3 3 [facility] OUTPATIEN INC T OFFICE 66741 EVANSHWTEA SWETHA OUTPATIEN 3 3 TRAVIS TRAVIS T VISIT 15 MINUTES EMERGENCY 60286 UNIVERSIT 2 2 Y [facility] H[facility] T VISIT LOW/MODER SEVERITY HOSPITAL UNIVERSIT - 2 2 Y [facility] T EMERGENCY 77775 FELIPE MAURO 2 2 MEDICAL RYA [facility] SERV T VISIT FOUNDATIO MODERATE SEVERITY EMERGENCY 13849 DAVIAN HOL[facility] DEPT 2 2 EMERGENCY JUAN ANTONIO VISIT SERVICES HIGH SEVERITY& THREAT [facility] [place] - 2 2 [facility] OUTPATIEN INC T EMERGENCY 02065 [place] 2 2 [facility] INC T VISIT HIGH/URGE NT SEVERITY OFFICE 37734 SWETHA POSADA OUTPATIEN 2 2 TRAVIS TRAVIS T VISIT 15 MINUTES OFFICE 71356 SWETHA POSADA OUTPATIEN 2 2 TRAVIS TRAVIS T VISIT 15 MINUTES [facility] [place] [address] [facility] OFF[facility] 43468 [place] J[facility] OUTPATIEN 2 2 [facility] NAN T VISIT INTERNAL 10 MEDI MINUTES OFFICE 03166 SWETHA POSADA OUTPATIEN 2 2 TRAVIS TRAVIS T VISIT 15 MINUTES [facility] [place] [address] 2 N [facility] [place] [address] 2 N [facility] [place] [address] 1 N OUTPATIMARY [facility] HOSPITA OFFICE 39600 CENTRAL SAENZ TRA OUTPATIEN 1 1 [place] T VISIT ORTHOPAED 15 [facility] MINUTES OFFICE 52336 [facility] SAENZ TRA OUTPATIEN 1 1 [place] VISIT ORTHOPAED 15 [facility] MINUTES OFFICE 21952 [facility] BRYSON OUTPATIEN 1 1 [place] MANJIT T VISIT ORTHOPAED 15 [facility] MINUTES OFFICE 02847 [facility] BRYSON OUTPATIEN 1 1 [place] MANJIT T VISIT ORTHOPAED 15 [facility] MINUTES OFFICE 98584 [facility] BRYSON OUTPATIEN 1 1 [place] MANJIT T VISIT ORTHOPAED 15 [facility] MINUTES [facility] [place] [facility] 1 1 [facility] OUTPATIEN INC T [facility] [place] - 1 1 [facility] OUTPATIEN INC T OFFICE 13629 [facility] KIRSTIE OUTPATIEN 1 1 CARDIOTHO T NEW 45 RACIC MINUTES SURGI OFFICE 35544 [facility] [place] [facility] T JONNY 30 [facility]THOP[facility]ED MINUTES [facility]
--- OUTSIDE RECORDS SUMMARY | 2017-03-10 18:30 | External Medical Summary Rpt ---
Author Author [facility] Hassan, [employer] Organization [facility] [employer] Address Unknown Phone Unavailable Results Drugs identified in Urine by Screen method Observa Value Referen Units Interpr Notes Date tion ce etation Range Positive urine drug screen samples are stored for 7 days. Contact the Lab if confirmation of positives is needed. Ampheta NEGATIV <1000 ng/mL No No Feb 20 mine E informa informa 2016 [Presen tion in tion in 1:15 PM ce] in source source Urine data data by Screen method Barbitura <200 ng/mL No No Feb 20 marc informati informati 2017 1:15 [Mass/vol on in on in PM ume] in source source Urine by data data Screen method Benzodiaz 200 ng/mL ng/mL High This is Feb 20 epines an 2017 1:15 [Mass/vol UNCONFIRM PM ume] in ED Serum or result. Plasma by This Screen result is method for medicalpu rposes and/or treatment only. Cocaine <300 ng/g No No Feb 20 [Mass/vol informati informati 2017 1:15 ume] in on in on in PM Unspecifi source source ed data data specimen Methadone <300 ng/mL No No Feb 20 informati informati 2017 1:15 [Mass/vol on in on in PM ume] in source source Unspecifi data data ed specimen Opiates <300 ng/mL No No Feb 20 [Mass/vol informati informati 2017 1:15 ume] in on in on in PM Unspecifi source source ed data data specimen Phencycli <25 ng/mL No No Feb 20 dine informati informati 2017 1:15 [Mass/vol on in on in PM ume] in source source Unspecifi data data ed specimen 11-Hydr NEGATIV <50 ng/mL No No Feb 20 oxy E informa informa 2017 delta-9 tion in tion in 1:15 PM source source tetrahy data data drocann abinol [Presen ce] in Unspeci fied specime n
--- OUTSIDE RECORDS SUMMARY | 2017-03-10 18:30 | External Medical Summary Rpt ---
Author Author , LIZETH AYERS Address Unknown Phone [email or web address] Immunization Name Date Rout CVX Reac Dose Comm Prov Is Faci e tion ent ider Refu lity Give sed n Tdap 03-2 115 999 Hist H149 No H149 , 5-20 oric Adso 08 al rbed Info rmat ion - Sour ce Unsp ecif ied
--- OUTSIDE RECORDS SUMMARY | 2017-03-10 18:30 | External Medical Summary Rpt ---
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 [facility] BILATERAL IMAGING 2 VIEWS ASS ANTEROPOS T PELVIS RADIOLOGI 85659 [place] C 4 [facility] EXAMINATI IMAGING ON KNEE [...] INC HY INCL CAD WHEN PERF; UNI XTRNL ECG 43373 [place] LANDRY JR 3 [facility] S RHYTHM P W/I&R UP TO 48 HRS XTRNL ECG 60717 [place] [facility] & 48 HR 3 [facility] RECORDING INC INC ECHO 71861 [place] VIEYRA TTHRC R-T [address] W/WOM-MOD P E COMPL SPEC&COLR D EXTERNAL 17840 [place] [facility] ECG 3 [facility] SCANNING INC INC ANALYSIS REPORT ECG 36511 [facility] ROUTINE 3 [place] W/LEAST PSC 12 LDS W/I&R NJX 36141 [facility] DX/THER 3 N N SBST [facility] EPIDURAL/ HOSPITA HOSPITA SUBARACH LUMBAR/SA CRAL EXC 07517 [facility] [place] CYST/ABER 3 PHYSICIAN ALLISON MUELLER BREAST TISSUE OPEN 1/> LESION THERAPEUT 30614 [place] [facility] IC 3 [facility] INJECTION INC [place] [address] [place] [facility] INFUSION 3 [facility] THERAPY/P INC INC ROPHYLAXI S /DX 1ST TO 1 HR GONADOTRO 10146 [place] [facility] PIN 3 [facility] HOSP CHORIONIC [place] [address] [place] [facility] SURG 3 [facility] HOSP PATHOLOGY INC INC GROSS&AREN ROSCOPIC EXAM INJECTION J2405 [place] [facility] 3 [facility] HOSP ONDANSETR INC INC ON HCL PER 1 MG ANES 90506 [facility] INTEG 3 ANESTH EXTREMITI OF THE ES ANT BLUE TRUNK & PERINEUM NOS ECG 84844 [place] [facility] ROUTINE 3 [facility] HOSP ECG INC INC W/LEAST 12 LDS TRCG ONLY W/O I&R ECG 53403 [place] TORRESMIE ROUTINE 3 [facility] W/LEAST P 12 LDS I&R ONLY COLLECTIO 81656 [place] [facility] N VENOUS 3 [facility]OSP BLOOD INC INC VENIPUNCT URE BLOOD 80522 [place] [facility] COUNT 3 [facility] COMPLETE INC INC AUTO&AUTO DIFRNTL WBC BASIC 41004 [place] [facility] METABOLIC 3 [facility]P PANEL INC INC CALCIUM TOTAL DIAGNOSTI G0204 [facility] [place] [place] JAVIER Guallpa 3 [facility] MAMMOGRAP IMAGING HY INCL ASS CAD WHEN PERF; BILAT US BREAST 16410 [place] [facility] REAL 3 [facility] HOSP TIME INC INC W/IMAGE DOCUMENTA TION RADIOLOGI 74056 [facility] Guallpa 3 [facility] EXAMINATI IMAGING ON CHEST ASS SINGLE VIEW FRONTAL RADEX 92952 [facility] HAND 2 [facility] MINIMUM 3 IMAGING VIEWS ASS FLUOR 99351 [facility] NEEDLE/CA 2 N N TH [facility] SPINE/PAR HOSPITA HOSPITA ASPINAL DX/THER ADDON RADEX 12976 [facility] SPINE 1 2 N N VIEW [facility] SPECIFY HOSPITA HOSPITA LEVEL NJX 05357 [facility] DX/THER 2 N N SBST [facility] EPIDURAL/ HOSPITA HOSPITA SUBARACH LUMBAR/SA CRAL INJECTION J2250 [facility] 2 N N MIDAZOLAM [facility] HCL PER HOSPITA HOSPITA 1 MG INJECTION J1040 [facility] 2 N N METHYLPRE [facility] DNISOLONE HOSPITA HOSPITA ACETATE [address] [place] [address] PATHOLOGY PATHOLOGY SURG 2 & & PATHOLOGY CYTOLOGY CYTOLOGY LAB LAB GROSS&AREN ROSCOPIC EXAM DSTR 37576 [facility] NROLYTC 2 N N AGNT [facility] PARVERTEB HOSPITA HOSPITA FCT ADDL LMBR/SACR AL FLUOR 36876 [facility] NEEDLE/CA 2 N N TH [facility] SPINE/PAR HOSPITA HOSPITA ASPINAL DX/THER ADDON RADEX 57154 [facility] SPINE 2 N N LUMBOSACR [facility] AL 2/3 HOSPITA HOSPITA VIEWS INJECTION J2250 [facility] 2 N N MIDAZOLAM [facility] HCL PER HOSPITA HOSPITA 1 MG DSTR 49225 [facility] NROLYTC 2 N N AGNT [facility] PARVERTEB HOSPITA HOSPITA FCT SNGL LMBR/SACR AL INJECTION J3010 [facility] FENTANYL 2 N N CITRATE [facility] 0.1 MG HOSPITA HOSPITA INJECTION J3010 [facility]L 2 N N CITRATE [facility] 0.1 MG HOSPITA HOSPITA DSTR 49955 [facility] NROLYTC 2 N N AGNT [facility] PARVERTEB HOSPITA HOSPITA FCT SNGL LMBR/SACR AL RADEX 37568 [facility] SPINE 2 N N LUMBOSACR [facility] AL HOSPITA HOSPITA MINIMUM 4 VIEWS FLUOR 18860 [facility] NEEDLE/CA 2 N N TH [facility] SPINE/PAR HOSPITA HOSPITA ASPINAL DX/THER ADDON DSTR 63519 [facility] NROLYTC 2 N N AGNT [facility] PARVERTEB HOSPITA HOSPITA FCT ADDL LMBR/SACR AL RADEX 59605 [facility] SPINE 1 1 N N VIEW [facility] SPECIFY HOSPITA HOSPITA LEVEL NJX 11362 [facility] N[facility] DX/THER 1 AGT PVRT FACET JT LMBR/SAC 3+ LEVEL FLUOR 86124 [facility] NEEDLE/CA 1 N N TH [facility] SPINE/PAR HOSPITA HOSPITA ASPINAL DX/THER ADDON NJX 69577 [facility] DX/THER 1 N N AGT PVRT [facility] FACET JT HOSPITA HOSPITA LMBR/SAC 1 LEVEL NJX 31386 [facility] NATHAN HAM DX/THER 1 AGT PVRT FACET JT LMBR/SAC 2ND LEVEL THERAPEUT 88699 PROFESSIO CROSSFIEL IC PX 1/> 1 NAL REHAB D INES AREAS ASSOC EACH 15 PSC MIN EXERCISES THERAPEUT 85017 PROFESSIO CROSSFIEL IC PX 1/> 1 NAL REHAB D INES AREAS ASSOC EACH 15 PSC MIN EXERCISES E-STIM G0283 PROFESSIO CROSSFIEL 1/> AREAS 1 NAL REHAB D INES OTH THAN ASSOC WND CARE PSC PART TX PLAN E-STIM G0283 PROFESSIO CROSSFIEL 1/> AREAS 1 NAL REHAB D INES OTH THAN ASSOC WND CARE PSC PART TX PLAN THERAPEUT 27765 PROFESSIO CROSSFIEL IC PX 1/> 1 NAL REHAB D INES AREAS ASSOC EACH 15 PSC MIN EXERCISES THERAPEUT 27695 PROFESSIO CROSSFIEL IC PX 1/> 1 NAL REHAB D INES AREAS ASSOC EACH 15 PSC MIN EXERCISES MANUAL 10-04-201 41553 PROFESSIO CROSSFIEL THERAPY 1 NAL REHAB D INES TQS 1/> ASSOC REGIONS PSC EACH 15 MINUTES THERAPEUT 13478 PROFESSIO CROSSFIEL IC PX 1/> 1 NAL REHAB D INES AREAS ASSOC EACH 15 PSC MIN EXERCISES E-STIM G0283 PROFESSIO CROSSFIEL 1/> AREAS 1 NAL REHAB D INES OTH THAN ASSOC WND CARE PSC PART TX PLAN E-STIM G0283 PROFESSIO CROSSFIEL 1/> AREAS 1 NAL REHAB D INES OTH THAN ASSOC WND CARE PSC PART TX PLAN THERAPEUT 89878 PROFESSIO CROSSFIEL IC PX 1/> 1 NAL REHAB D INES AREAS ASSOC EACH 15 PSC MIN EXERCISES THERAPEUT 39744 PROFESSIO CROSSFIEL IC PX 1/> 1 NAL REHAB D INES AREAS ASSOC EACH 15 PSC MIN EXERCISES E-STIM G0283 PROFESSIO CROSSFIEL 1/> AREAS 1 NAL REHAB D INES OTH THAN ASSOC WND CARE PSC PART TX PLAN E-STIM G0283 PROFESSIO CROSSFIEL 1/> AREAS 1 NAL REHAB D INES OTH THAN ASSOC WND CARE PSC PART TX PLAN THERAPEUT 42735 PROFESSIO CROSSFIEL IC PX 1/> 1 NAL REHAB D INES AREAS ASSOC EACH 15 PSC MIN EXERCISES THERAPEUT 29234 PROFESSIO CROSSFIEL IC PX 1/> 1 NAL REHAB D INES AREAS ASSOC EACH 15 PSC MIN EXERCISES E-STIM G0283 PROFESSIO CROSSFIEL 1/> AREAS 1 NAL REHAB D INES OTH THAN ASSOC WND CARE PSC PART TX PLAN E-STIM G0283 PROFESSIO CROSSFIEL 1/> AREAS 1 NAL REHAB D INES OTH THAN ASSOC WND CARE PSC PART TX PLAN MANUAL 32485 PROFESSIO CROSSFIEL THERAPY 1 NAL REHAB D INES TQS 1/> ASSOC REGIONS PSC EACH 15 MINUTES THERAPEUT 29739 PROFESSIO CROSSFIEL IC PX 1/> 1 NAL REHAB D INES AREAS ASSOC EACH 15 PSC MIN EXERCISES THERAPEUT 33933 PROFESSIO CROSSFIEL IC PX 1/> 1 NAL REHAB D INES AREAS ASSOC EACH 15 PSC MIN EXERCISES MANUAL 38402 PROFESSIO CROSSFIEL THERAPY 1 NAL REHAB D INES TQS 1/> ASSOC REGIONS PSC EACH 15 MINUTES E-STIM G0283 PROFESSIO CROSSFIEL 1/> AREAS 1 NAL REHAB D INES OTH THAN ASSOC WND CARE PSC PART TX PLAN E-STIM G0283 PROFESSIO CROSSFIEL 1/> AREAS 1 NAL REHAB D INES OTH THAN ASSOC WND CARE PSC PART TX PLAN MANUAL 52778 PROFESSIO CROSSFIEL THERAPY 1 NAL REHAB D INES TQS 1/> ASSOC REGIONS PSC EACH 15 MINUTES THERAPEUT 66929 PROFESSIO CROSSFIEL IC PX 1/> 1 NAL REHAB D INES AREAS ASSOC EACH 15 PSC MIN EXERCISES THERAPEUT 06396 PROFESSIO CROSSFIEL IC PX 1/> 1 NAL REHAB D INES AREAS ASSOC EACH 15 PSC MIN EXERCISES MANUAL 48454 PROFESSIO CROSSFIEL THERAPY 1 NAL REHAB D INES TQS 1/> ASSOC REGIONS PSC EACH 15 MINUTES E-STIM G0283 PROFESSIO CROSSFIEL 1/> AREAS 1 NAL REHAB D INES OTH THAN ASSOC WND CARE PSC PART TX PLAN MANUAL 74632 PROFESSIO CROSSFIEL THERAPY 1 NAL REHAB D INES TQS 1/> ASSOC REGIONS PSC EACH 15 MINUTES THERAPEUT 47693 PROFESSIO CROSSFIEL IC PX 1/> 1 NAL REHAB D INES AREAS ASSOC EACH 15 PSC MIN EXERCISES PHYSICAL 16292 PROFESSIO CROSSFIEL THERAPY 1 NAL REHAB D INES EVALUATIO ASSOC N PSC OPHTH 12252 [facility] 1 VISION ANG XM&EVAL COMPRE NEW PT 1/> VST INJECTION J1040 [facility] TRA 1 [place] [facility] ACETATE 80 MG NJX 03704 [facility] TRA DX/THER 1 [place] [facility] EPIDURAL/ [facility] SUBARACH LUMBAR/SA CRAL NJX 62854 [facility] TRA DX/THER 1 [place] [facility] EPIDURAL/ [facility] SUBARACH LUMBAR/SA CRAL INJECTION J1040 [facility] TRA 1 [place] [facility]ETH[facility] [facility] DNIS[facility]ONE [facility] ACETATE 80 MG INJECTION J1040 [facility] TRA 1 [place] [facility] ACETATE 80 MG NJX 16973 [facility] SAEN[facility] TRA DX/THER 1 [place] [facility] EPIDURAL/ [facility] SUBARACH LUMBAR/SA CRAL MODERATE 53641 CARDIOVAS BRIA SEDATJ 1 ULAR & CARMEN SAME THORACIC PHYS/QHP ASS 5/>YRS INIT 30 MIN ENDOVEN 26049 CARDIOV[facility] BRIA ABLTJ 1 ULAR & CARMEN INCMPTNT THORACIC VEIN XTR ASS LASER 1ST VEIN LIG&DIV 99786 CARDIOVAS BRIA LONG SAPH 1 ULAR & CARMEN VEIN THORACIC SAPHFEM ASS JUNCT/INT ERRUPJ NON-INVAS 19779 [place] YAAKOV 1 [facility] PHYSIOLOG IMAGING IC STUDY ASS EXTREMITY 3 LEVLS DUP-SCAN 09061 [place] XTR VEINS 1 [facility] COMPLETE IMAGING ASS BILATERAL STUDY MRI 35234 [facility]EN[facility] SAENZ TRA SPINAL 1 [place] CANAL [facility]TH[facility]AED LUMBAR [facility] W/O CONTRAST MATERIAL MRI 51149 [facility]EN[facility]AL SAENZ TRA PELVIS 1 [place] W/O ORTHOPAED CONTRAST [facility]CS [facility] MATERIAL RADEX HIP 82550 [place] 1 [facility] UNILATERA IMAGING L ASS COMPLETE MINIMUM 2 VIEWS RADEX 69371 [place] SPINE 1 [facility] LUMBOSACR IMAGING AL ASS MINIMUM 4 VIEWS RADEX 40171 [place] FOOT 1 [facility] COMPLETE IMAGING MINIMUM 3 ASS VIEWS Encounters Encounter Start End Date Code Location Performer Type Date OFFICE 26920 [facility] TALIA GOODE 7 7 PHYSICIAN T VISIT S GROUP 10 MINUTES [facility]PATI[facility] T [facility] [place] [facility] 7 7 [facility] OUTPATIEN INC T OFFICE 64864 [facility] 7 7 PHYSICIAN T VISIT S GROUP 25 MINUTES OFFICE 98053 [place] OUT[facility]IEN 7 7 [facility] 15 MINUTES [facility] [place] - 7 7 [facility] OUTPATIEN INC T OFFICE 19680 SWETHA [facility]ADA OUTPATIEN 7 7 T VISIT 15 MINUTES OFFICE 18778 SWETHA POSADA OUTPATIEN 7 7 T VISIT 15 MINUTES OFFICE 45920 [facility] OUTPATIEN 6 6 PHYSICIAN DAQUAN T VISIT S GROUP 15 MINUTES OFFICE 89764 [place] [facility] OUTPATIEN 6 6 [facility] T [facility]ISIT C[facility] 15 MINUTES [facility] [place] - 6 6 [facility] OUTPATIEN INC T OFFICE 38039 EVANSHWETA POSADA OUTPATIEN 6 6 TRAVIS TRAVIS T VISIT 15 MINUTES EMERGENCY 63944 [place] 6 6 [facility] DEPARTMEN INC T VISIT HIGH/URGE NT SEVERITY EMERGENCY 41198 [facility] DEPT 6 6 PHYSICIAN SHERRI VISIT S, [facility] HIGH SEVERITY& [facility]PATIEN INC [facility] [place] - 6 6 [facility] OUTPATIEN INC T OFFICE 19394 [place] [facility] OUTPATIEN 6 6 [facility] 15 MINUTES OFFICE 25848 [place] [facility] OUTPATIEN 6 6 [facility] 15 MINUTES OFFICE 03147 EVANSHWETA POSADA OUTPATIEN 6 6 TRAVIS TRAVIS T VISIT 15 MINUTES OFFICE 02289 [place] [facility] OUTPATIEN 6 6 [facility] 15 MINUTES OFFICE 64516 [facility]YANA SCIFRES OUTPATIEN 6 6 [facility] 15 MINUTES OFFICE 49809 SWETHA POSADA OUTPATIEN 6 6 TRAVIS TRAVIS T VISIT 15 MINUTES OFFICE 35377 SWETHA POSADA OUTPATIEN 5 5 TRAVIS TRAVIS T VISIT 15 MINUTES OFFICE 07249 [facility] [place] OUTPATIEN 5 5 PHYSICIAN CAM T VISIT S GROUP 15 MINUTES [facility] [place] - 5 5 [facility] OUTPATIEN INC T OFFICE 94904 NO [facility] OUTPATIEN 5 5 PAIN T VISIT MANAGEMEN 15 T MINUTES OFFICE 71654 [facility] [place] OUTPATIEN 5 5 PHYSICIAN CAM T VISIT S GROUP 15 MINUTES [facility] [place] - 5 5 [facility] OUTPATIEN INC T OFFICE 40470 NO [facility] OUTPATIEN 5 5 PAIN T VISIT MANAGEMEN 15 T MINUTES [facility] [place] - 5 5 [facility] INPATIENT INC OFFICE 46883 NO [facility] OUTPATIEN 5 5 PAIN T VISIT MANAGEMEN 15 T MINUTES [facility] [place] - 5 5 [facility] OUTPATIEN INC T [facility] [place] - 5 5 [facility]PATIEN INC T [facility] [place] 5 5 [facility] OUTPATIEN INC T [facility] [place] - 5 5 [facility] OUTPATIEN INC T OFFICE 34224 [facility] [place] OUTPATIEN 5 5 PHYSICIAN CAM T VISIT S GROUP 25 MINUTES [facility] [place] - 5 5 [facility] OUTPATIEN INC T OFFICE 25549 [facility] [place] OUTPATIEN 5 5 PHYSICIAN JAM T VISIT S GROUP 15 MINUTES OFFICE 04359 SORAYA LOPEZ ERICKA OUTPATIEN 4 4 VISION T VISIT CENTER 15 MINUTES [facility] [place] - 4 4 [facility] OUTPATIEN INC T OFFICE 77142 [facility] [place] OUTPATIEN 4 4 PHYSICIAN ALLISON T VISIT S GROUP 10 MINUTES [facility] [place] - 4 4 [facility] OUTPATIEN INC T OFFICE 91033 SWETHA GOODE 4 4 TRAVIS TRAVIS T VISIT 15 MINUTES OFFICE 90248 SWETHA GOODE 4 4 TRAVIS TRAVIS T VISIT 15 MINUTES [facility] [place] - 4 4 [facility] OUTPATIEN INC T OFFICE 19251 [facility] OUTPATIEN 4 4 PHYSICIAN SUNIL T NEW 30 S GROUP MINUTES [facility] [place] - 4 4 [facility] OUTPATIEN INC T OFFICE 01997 SWETHA GOODE 4 4 TRAVIS TRAVIS T VISIT 15 MINUTES OFFICE 19922 SWETHA GOODE 4 4 TRAVIS TRAVIS T VISIT 15 MINUTES OFFICE 08015 SWETHA GOODE 3 3 TRAVIS TRAVIS T VISIT 15 MINUTES [facility] [place] [facility] 3 [facility] OUTPATIEN INC T [facility] - 3 3 [facility] OUTPATIEN INC T OFFICE 31324 JONNY IVY TRAVIS OUTPATIEN 3 3 RAJANI T NEW 45 CLINIC MINUTES PSYCHIATRIC OFFICE 14907 SWETHA GOODE 3 3 TRAVIS TRAVIS T VISIT 15 MINUTES [facility] N OUTPATIEN COMMUNITY T HOSPITA OFFICE 60558 SWETHA GOODE 3 3 TRAVIS TRAVIS T VISIT 15 MINUTES OFFICE 37913 SWETHA POSADA OUTPATIEN 3 3 TRAVIS TRAVIS T VISIT 15 MINUTES OFFICE 86568 SWETHA POSADA OUTPATIEN 3 3 TRAVIS TRAVIS T VISIT 15 MINUTES [facility] 3 3 [facility] [place] - 3 3 [facility] OUTPATIEN [facility] T OFFICE 69087 C HARJEET ROUSSEAU OUTPATIEN 3 3 SOHAM [place] MD PSC MINUTES [facility] [place] - 3 3 [facility] OUTPATIEN [facility] T OFFICE 62755 SWETHA POSADA OUTPATIEN 3 3 TRAVIS TRAVIS T VISIT 15 MINUTES HOSPITAL [facility] - 2 2 Y [facility] T EMERGENCY 83474 [place] 2 2 [facility] T VISIT MODERATE SEVERITY EMERGENCY 44540 [facility] DEPT 2 2 EMERGENCY JUAN ANTONIO VISIT SERVICES HIGH SEVERITY& THREAT FUN EMERGENCY 50690 [facility] 2 2 [facility] T VISIT LOW/MODER SEVERITY EMERGENCY 20571 DAVIAN STERN 2 2 EMERGENCY [facility] SERVICES T VISIT HIGH/URGE NT SEVERITY [facility] [place] - 2 2 [facility] OUTPATIEN [facility] T OFFICE 51517 SWETHA CORONAEN 2 2 TRAVIS TRAVIS T VISIT 15 MINUTES OFFICE 40155 SWETHA POSADA OUTPATIEN 2 2 TRAVIS TRAVIS T VISIT 15 MINUTES [facility]OSPITAL [facility] 64245 [facility] T VISIT INTERNAL 10 MEDI MINUTES OFFICE 14604 SWETHA GOODE 2 2 TRAVIS TRAVIS T VISIT 15 MINUTES [facility] 1 1 N OUTPATIEN [facility] [place] [facility] OFFICE 29575 [facility] [place] [facility] 15 [facility] MINUTES OFFICE 18096 [facility] [place]ES OFFICE [id number] [facility] OUT[place] 1 1 [place] VISIT ORTHOPAED 15 [facility] MIN[facility]ES OFFICE 62265 [facility] [place] 1 1 [place] ORTHOPAED 15 [facility] MINUTES OFFICE 73942 [facility] [place] 1 1 [place] V[place] ORTHOPAED 15 [facility] MINUTES [facility] [place] [facility] [place] [facility] 1 [facility] OFFICE 32690 AMISH LISETH KIRSTIE OUTPATIEN 1 1 CARDIOTHO T NEW 45 RACIC MINUTES SURGI OFFICE 52415 [facility] [place] 1 1 [place] MAN[place]IT T NEW 30 ORTHOPAED MINUTES [facility]
--- OUTSIDE RECORDS SUMMARY | 2017-03-10 18:30 | External Medical Summary Rpt ---
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 BREAST TISSUE OPEN 1/> LESION THERAPEUT 06912 [place] [facility] IC 3 [facility] INJECTION INC [place] [address] [place] [facility] INFUSION 3 [facility] THERAPY/P INC INC ROPHYLAXI S /DX 1ST TO 1 HR GONADOTRO 21937 [place] D[facility] PIN 3 [facility] CHORIONIC [place] [address] [place] [facility] SURG 3 [facility] PATHOLOGY INC INC GROSS&AREN ROSCOPIC EXAM INJECTION J2405 [place] D[facility]AN 3 [facility] ONDANSETR INC INC ON HCL PER 1 MG ANES 18986 [facility] INTEG 3 ANESTH EXTREMITI OF THE ES ANT BLUE TRUNK & PERINEUM NOS ECG 41745 [place] [facility] ROUTINE 3 [facility] ECG INC INC W/LEAST 12 LDS TRCG ONLY W/O I&R ECG 96548 [place] TORRESMIE ROUTINE 3 [facility] W/LEAST P 12 LDS I&R ONLY COLLECTIO 11539 [place] DUNCAN N VENOUS 3 [facility] BLOOD INC INC VENIPUNCT URE BLOOD 41059 [place] [facility] COUNT 3 [facility] COMPLETE INC INC AUTO&AUTO DIFRNTL WBC BASIC 61562 [place] D[facility] METABOLIC 3 [facility] PANEL INC INC CALCIUM TOTAL DIAGNOSTI G0204 [facility] JAVIER Guallpa 3 [facility] MAMMOGRAP IMAGING HY INCL ASS CAD WHEN PERF; BILAT US BREAST 63988 [place] DUNCAN REAL 3 [facility] TIME INC INC W/IMAGE DOCUMENTA TION RADIOLOGI 67381 [facility] Guallpa 3 [facility] EXAMINATI IMAGING ON CHEST ASS SINGLE VIEW FRONTAL RADEX 37918 [facility] HAND 2 [facility] MINIMUM 3 IMAGING VIEWS ASS FLUOR 69797 [facility] NEEDLE/CA 2 N N TH [facility] SPINE/PAR HOSPITA HOSPITA ASPINAL DX/THER ADDON RADEX 56116 [facility] SPINE 1 2 N N VIEW [facility] SPECIFY HOSPITA HOSPITA LEVEL NJX 14198 [facility] DX/THER 2 N N SBST [facility] EPIDURAL/ HOSPITA HOSPITA SUBARACH LUMBAR/SA CRAL INJECTION J2250 [facility] 2 N N [place] [facility] HCL PER HOSPITA HOSPITA 1 MG INJECTION J1040 [facility] 2 N N METHYLPRE [facility] DNISOLONE HOSPITA HOSPITA ACETATE [address] [place] [address] PATHOLOGY PATHOLOGY SURG 2 & & PATHOLOGY CYTOLOGY CYTOLOGY LAB LAB GROSS&AREN ROSCOPIC EXAM DSTR 66988 [facility] NROLYTC 2 N N AGNT [facility] PARVERTEB HOSPITA HOSPITA FCT ADDL LMBR/SACR AL FLUOR 93568 [facility] NEEDLE/CA 2 N N TH [facility] SPINE/PAR HOSPITA HOSPITA ASPINAL DX/THER ADDON RADEX 08790 [facility] SPINE 2 N N LUMBOSACR [facility] AL 2/3 HOSPITA HOSPITA VIEWS INJECTION J2250 [facility] 2 N N [facility] [facility] HCL PER HOSPITA HOSPITA 1 MG DSTR 01434 [facility] NROLYTC 2 N N AGNT [facility] PARVERTEB HOSPITA HOSPITA FCT SNGL LMBR/SACR AL INJECTION J3010 [facility] FENTANYL 2 N N CITRATE [facility] 0.1 MG HOSPITA HOSPITA INJECTION J3010 [facility] FENTANYL 2 N N [facility] 0.1 MG HOSPITA HOSPITA DSTR 52155 [facility] NROLYTC 2 N N AGNT [facility] PARVERTEB HOSPITA HOSPITA FCT SNGL LMBR/SACR AL RADEX 09216 [facility] SPINE 2 N N LUMBOSACR [facility] AL HOSPITA HOSPITA MINIMUM 4 VIEWS FLUOR 71935 [facility] NEEDLE/CA 2 N N TH [facility] SPINE/PAR HOSPITA HOSPITA ASPINAL DX/THER ADDON DSTR 93608 [facility] NROLYTC 2 N N AGNT [facility] PARVERTEB HOSPITA HOSPITA FCT ADDL LMBR/SACR AL RADEX 95572 [facility] SPINE 1 1 N N [facility]IEW [facility] SPECIFY HOSPITA [place]OSPITA LEVEL NJX 86364 NATHAN HAM NATHAN HAM DX/THER 1 AGT PVRT FACET JT LMBR/SAC 3+ LEVEL FLUOR 03015 [facility] NEEDLE/CA 1 N N TH [facility] SPINE/PAR HOSPITA HOSPITA ASPINAL DX/THER ADDON NJX 38762 [facility] DX/THER 1 N N AGT PVRT [facility] FACET JT HOSPITA HOSPITA LMBR/SAC 1 LEVEL NJX 61966 NATHAN HAM NATHAN HAM DX/THER 1 AGT PVRT FACET JT LMBR/SAC 2ND LEVEL THERAPEUT 22028 PROFESSIO CROSSFIEL IC PX 1/> 1 NAL REHAB D INES AREAS ASSOC EACH 15 PSC MIN EXERCISES THERAPEUT 43734 PROFESSIO CROSSFIEL IC PX 1/> 1 NAL REHAB D INES AREAS ASSOC EACH 15 PSC MIN EXERCISES E-STIM G0283 PROFESSIO CROSSFIEL 1/> AREAS 1 NAL REHAB D INES OTH THAN ASSOC WND CARE PSC PART TX PLAN E-STIM G0283 PROFESSIO CROSSFIEL 1/> AREAS 1 NAL REHAB D INES OTH THAN ASSOC WND CARE PSC PART TX PLAN THERAPEUT 06045 PROFESSIO CROSSFIEL IC PX 1/> 1 NAL REHAB D INES AREAS ASSOC EACH 15 PSC MIN EXERCISES THERAPEUT 47965 PROFESSIO CROSSFIEL IC PX 1/> 1 NAL REHAB D INES AREAS ASSOC EACH 15 PSC MIN EXERCISES MANUAL 10-04-201 89001 PROFESSIO CROSSFIEL THERAPY 1 NAL REHAB D INES TQS 1/> ASSOC REGIONS PSC EACH 15 MINUTES THERAPEUT 55241 PROFESSIO CROSSFIEL IC PX 1/> 1 NAL REHAB D INES AREAS ASSOC EACH 15 PSC MIN EXERCISES E-STIM G0283 PROFESSIO CROSSFIEL 1/> AREAS 1 NAL REHAB D INES OTH THAN ASSOC WND CARE PSC PART TX PLAN E-STIM G0283 PROFESSIO CROSSFIEL 1/> AREAS 1 NAL REHAB D INES OTH THAN ASSOC WND CARE PSC PART TX PLAN THERAPEUT 78840 PROFESSIO CROSSFIEL IC PX 1/> 1 NAL REHAB D INES AREAS ASSOC EACH 15 PSC MIN EXERCISES THERAPEUT 74558 PROFESSIO CROSSFIEL IC PX 1/> 1 NAL REHAB D INES AREAS ASSOC EACH 15 PSC MIN EXERCISES E-STIM G0283 PROFESSIO CROSSFIEL 1/> AREAS 1 NAL REHAB D INES OTH THAN ASSOC WND CARE PSC PART TX PLAN E-STIM G0283 PROFESSIO CROSSFIEL 1/> AREAS 1 NAL REHAB D INES OTH THAN ASSOC WND CARE PSC PART TX PLAN THERAPEUT 27638 PROFESSIO CROSSFIEL IC PX 1/> 1 NAL REHAB D INES AREAS ASSOC EACH 15 PSC MIN EXERCISES THERAPEUT 77732 PROFESSIO CROSSFIEL IC PX 1/> 1 NAL REHAB D INES AREAS ASSOC EACH 15 PSC MIN EXERCISES E-STIM G0283 PROFESSIO CROSSFIEL 1/> AREAS 1 NAL REHAB D INES OTH THAN ASSOC WND CARE PSC PART TX PLAN E-STIM G0283 PROFESSIO CROSSFIEL 1/> AREAS 1 NAL REHAB D INES OTH THAN ASSOC WND CARE PSC PART TX PLAN MANUAL 28245 PROFESSIO CROSSFIEL THERAPY 1 NAL REHAB D INES TQS 1/> ASSOC REGIONS PSC EACH 15 MINUTES THERAPEUT 62648 PROFESSIO CROSSFIEL IC PX 1/> 1 NAL REHAB D INES AREAS ASSOC EACH 15 PSC MIN EXERCISES THERAPEUT 09334 PROFESSIO CROSSFIEL IC PX 1/> 1 NAL REHAB D INES AREAS ASSOC EACH 15 PSC MIN EXERCISES MANUAL 11426 PROFESSIO CROSSFIEL THERAPY 1 NAL REHAB D INES TQS 1/> ASSOC REGIONS PSC EACH 15 MINUTES E-STIM G0283 PROFESSIO CROSSFIEL 1/> AREAS 1 NAL REHAB D INES OTH THAN ASSOC WND CARE PSC PART TX PLAN E-STIM G0283 PROFESSIO CROSSFIEL 1/> AREAS 1 NAL REHAB D INES OTH THAN ASSOC WND CARE PSC PART TX PLAN MANUAL 46575 PROFESSIO CROSSFIEL THERAPY 1 NAL REHAB D IENS TQS 1/> ASSOC REGIONS PSC EACH 15 MINUTES THERAPEUT 89998 PROFESSIO CROSSFIEL IC PX 1/> 1 NAL REHAB D INES AREAS ASSOC EACH 15 PSC MIN EXERCISES THERAPEUT 43454 PROFESSIO CROSSFIEL IC PX 1/> 1 NAL REHAB D INES AREAS ASSOC EACH 15 PSC MIN EXERCISES MANUAL 83436 PROFESSIO CROSSFIEL THERAPY 1 NAL REHAB D IENS TQS 1/> ASSOC REGIONS PSC EACH 15 MINUTES E-STIM G0283 PROFESSIO CROSSFIEL 1/> AREAS 1 NAL REHAB D INES OTH THAN ASSOC WND CARE PSC PART TX PLAN MANUAL 57798 PROFESSIO CROSSFIEL THERAPY 1 NAL REHAB D INES TQS 1/> ASSOC REGIONS PSC EACH 15 MINUTES THERAPEUT 48520 PROFESSIO CROSSFIEL IC PX 1/> 1 NAL REHAB D INES AREAS ASSOC EACH 15 PSC MIN EXERCISES PHYSICAL 40884 PROFESSIO CROSSFIEL THERAPY 1 NAL REHAB D INES EVALUATIO ASSOC N PSC OPHTH 65942 [facility] 1 VISION ANG XM&EVAL COMPRE NEW PT 1/> VST INJECTION J1040 [facility] TRA 1 [place] [facility]IS[facility] ACETATE 80 MG NJX 19588 [facility] TRA DX/THER 1 [place] [facility] EPIDURAL/ [facility] SUBARACH LUMBAR/SA CRAL NJX 83693 [facility] TRA DX/THER 1 [place] [facility] EPIDURAL/ [facility] SUBARACH LUMBAR/SA CRAL INJECTION J1040 [facility] TRA 1 [place] [facility] ACETATE 80 MG INJECTION J1040 [facility] TRA 1 [place] [facility] ACETATE 80 MG NJX 78826 [facility] TRA DX/THER 1 [place] [facility] EPIDURAL/ [facility] SUBARACH LUMBAR/SA CRAL MODERATE 49800 CARDIOVAS BRIA SEDATJ 1 ULAR & CARMEN SAME THORACIC PHYS/QHP ASS 5/>YRS INIT 30 MIN ENDOVEN 68136 CARDIOVAS BRIA ABLTJ 1 ULAR & CARMEN INCMPTNT THORACIC VEIN XTR ASS LASER 1ST VEIN LIG&DIV 68996 CARDIOVAS BRIA LONG SAPH 1 ULAR & CARMEN VEIN THORACIC SAPHFEM ASS JUNCT/INT ERRUPJ NON-INVAS 06900 [facility] JAVIER YAAKOV 1 [facility] PHYSIOLOG IMAGING IC STUDY ASS EXTREMITY 3 LEVLS DUP-SCAN 94096 [facility] JAVIER XTR VEINS 1 [facility] COMPLETE IMAGING ASS BILATERAL STUDY MRI 63893 [facility]EN[facility] TRA SPINAL 1 [place] CANAL [facility] LUMBAR [facility] W/O CONTRAST MATERIAL MRI 91244 [facility] TRA PELVIS 1 [place] W/O [place]THOPAED CONTRAST [facility]CS [facility] MATERIAL RADEX HIP 70975 [facility] JAVIER 1 [facility] UNILATERA IMAGING L ASS COMPLETE MINIMUM 2 VIEWS RADEX 67779 [facility] JAVIER SPINE 1 [facility] LUMBOSACR IMAGING AL ASS MINIMUM 4 VIEWS RADEX 90348 [facility] JAVIER FOOT 1 [facility] COMPLETE IMAGING MINIMUM 3 ASS VIEWS Encounters Encounter Start End Date Code Location Performer Type Date OFFICE 24283 [facility] TALIA GOODE 7 7 PHYSICIAN T VISIT S GROUP 10 MINUTES [facility] OUTPATI[facility] INC T [facility] [place] [facility] 7 7 [facility] OUTPATIEN INC T OFFICE 69034 [facility] KAISER OUTPATIEN 7 7 PHYSICIAN T VISIT S GROUP 25 MINUTES OFFICE 16011 [place] [facility] OUTPATIEN 7 7 [facility] 15 MINUTES [facility] - 7 7 [facility] OUTPATIEN INC T OFFICE 87872 SWETHA POSADA OUTPATIEN 7 7 T VISIT 15 MINUTES OFFICE 06363 SWETHA POSADA OUTPATIEN 7 7 T VISIT 15 MINUTES OFFICE 37083 [facility] OUTPATIEN 6 6 PHYSICIAN DAQUAN T VISIT S GROUP 15 MINUTES OFFICE 71765 [place] [facility] OUTPATIEN 6 6 [facility] 15 MINUTES [facility] - 6 6 [facility] OUTPATIEN INC T OFFICE 89414 EVANSHWETA POSADA OUTPATIEN 6 6 TRAVIS TRAVIS T VISIT 15 MINUTES EMERGENCY 69187 [place] 6 6 [facility] DEPARTMEN INC T VISIT HIGH/URGE NT SEVERITY EMERGENCY 73544 [facility] DEPT 6 6 PHYSICIAN SHERRI VISIT S, [facility] HIGH SEVERITY& [facility]AT [facility] OUTPATIEN INC [facility] [place] - 6 6 [facility] OUTPATIEN INC T OFFICE 78995 [place] [facility] OUTPATIEN 6 6 [facility] 15 MINUTES OFFICE 31257 [place] [facility] OUTPATIEN 6 6 [facility] 15 MINUTES OFFICE 08569 EVANSHWETA POSADA OUTPATIEN 6 6 [facility]VIS TRAVIS T VISIT 15 MINUTES OFFICE 31209 [place] [facility] OUTPATIEN 6 6 [facility] 15 MINUTES OFFICE 11041 NI[facility]YA[facility] SCIFRES OUTPATIEN 6 6 [facility] 15 MINUTES OFFICE 24769 SWETHA POSADA OUTPATIEN 6 6 TRAVIS TRAVIS T VISIT 15 MINUTES OFFICE 53521 SWETHA POSADA OUTPATIEN 5 5 TRAVIS TRAVIS T VISIT 15 MINUTES OFFICE 85734 [facility] SCHULSTAD OUTPATIEN 5 5 PHYSICIAN CAM T VISIT S GROUP 15 MINUTES [facility] [place] - 5 5 [facility] OUTPATIEN INC T OFFICE 91809 NO JEAN-BAPTISTE OUTPATIEN 5 5 PAIN T VISIT MANAGEMEN 15 T MINUTES OFFICE 10184 [facility] SCHULSTAD OUTPATIEN 5 5 PHYSICIAN CAM T VISIT S GROUP 15 MINUTES [facility] [place] - 5 5 [facility] OUTPATIEN INC T OFFICE 20144 NO JEAN-BAPTISTE OUTPATIEN 5 5 PAIN T VISIT MANAGEMEN 15 T MINUTES [facility] - 5 5 [facility] INPATIENT INC OFFICE 60681 NO [facility]ANS [facility] OUTPATIEN 5 5 PAIN T VISIT MANAGEMEN 15 T MINUTES [facility] [place] - 5 5 [facility] OUTPATIEN INC T [facility] [place] - 5 5 [facility] OUTPATIEN INC T [facility] [place] - 5 5 [facility] OUTPATIEN INC T [facility] [place] - 5 5 [facility] OUTPATIEN INC T OFFICE 59428 [facility] SCHULSTAD OUTPATIEN 5 5 PHYSICIAN CAM T VISIT S GROUP 25 MINUTES [facility] [place] - 5 5 [facility] OUTPATIEN INC T OFFICE 91939 [facility] PETTEY OUTPATIEN 5 5 PHYSICIAN JAM T VISIT S GROUP 15 MINUTES OFFICE 89447 SORAYA LOPEZ ERICKA OUTPATIEN 4 4 VISION T VISIT CENTER 15 MINUTES [facility] [place] - 4 4 [facility] OUTPATIEN INC T OFFICE 15795 [facility] SOHAM OUTPATIEN 4 4 PHYSICIAN ALLISON T VISIT S GROUP 10 MINUTES [facility] [place] - 4 4 [facility] OUTPATIEN INC T OFFICE 35218 SWETHA GOODE 4 4 TRAVIS TRAVIS T VISIT 15 MINUTES OFFICE 75578 SWETHA GOODE 4 4 TRAVIS TRAVIS T VISIT 15 MINUTES [facility] [place] - 4 4 [facility] OUTPATIEN INC T OFFICE 85138 [facility] PETTEBeth OUTPATIEN 4 4 PHYSICIAN SUNIL T NEW 30 S GROUP MINUTES [facility] [place] - 4 4 [facility] OUTPATIEN INC T OFFICE 13555 SWETHA GOODE 4 4 TRAVIS TRAVIS T VISIT 15 MINUTES OFFICE 17900 SWETHA GOODE 4 4 TRAVIS TRAVIS T VISIT 15 MINUTES OFFICE 81464 SWETHA GOODE 3 3 TRAVIS TRAVIS T VISIT 15 MINUTES [facility] [place] - 3 3 [facility] OUTPATIEN INC T [facility] [place] [facility] 3 3 [facility] OUTPATIEN INC T OFFICE 61110 JONNY IVY TRAVIS OUTPATIEN 3 3 RAJANI T NEW 45 CLINIC MINUTES [facility] OFFICE 87277 SWETHA GOODE 3 3 TRAVIS TRAVIS T VISIT [facility]ES [facility] OUTPATIEN COMMUNITY T HOSPITA OFFICE 84953 SWETHA GOODE 3 3 TRAVIS TRAVIS T VISIT 15 MINUTES OFFICE 91496 SWETHA POSADA OUTPATIEN 3 3 TRAVIS TRAVIS T VISIT 15 MINUTES OFFICE 91242 SWETHA POSADA OUTPATIEN 3 3 TRAVIS TRAVIS T VISIT 15 MINUTES [facility] [place] [facility] 3 3 [facility]PATIEN [facility] - 3 3 [facility] OUTPATIEN [facility] T OFFICE 55456 C HARJEET ROUSSEAU OUTPATIEN 3 3 [place] PSC MINUTES [facility] [place] - 3 3 [facility] OUTPATIEN [facility] T OFFICE 11888 SWETHA POSADA OUTPATIEN 3 3 TRAVIS TRAVIS T VISIT 15 MINUTES HOSPITAL [facility] - 2 2 Y [facility] T EMERGENCY 33338 [place] 2 2 [facility] T VISIT MODERATE SEVERITY EMERGENCY 73435 [facility] DEPT 2 2 EMERGENCY JUAN ANTONIO VISIT SERVICES HIGH SEVERITY& THREAT FUN EMERGENCY 25432 [facility] [address] [facility] T VISIT LOW/MODER SEVERITY EMERGENCY 14700 DAVIAN STERN 2 2 EMERGENCY [facility] SERVICES T VISIT HIGH/URGE NT SEVERITY [facility] [place] - 2 2 [facility] OUTPATIEN [facility] T OFFICE 79923 SWETHA CORONAEN 2 2 TRAVIS TRAVIS T VISIT 15 MINUTES OFFICE 88626 SWETHA POSADA OUTPATIEN 2 2 TRAVIS TRAVIS T VISIT 15 MINUTES [facility] 31721 [facility] T VISIT INTERNAL 10 MEDI MINUTES OFFICE 33381 SWETHA GOODE 2 2 TRAVIS TRAVIS T [facility]ISIT 15 MINUTES [facility] - 2 2 N [facility]OD [facility] - 2 2 N [facility]OD [facility] 1 1 N [facility] [id number] [facility] [place] [facility]OP[facility]ED 15 [facility] MINUTES OFFICE 09605 [facility] [place] 15 [facility] MIN[facility]ES OFFICE 96796 [facility] [place] 1 [place] VISIT ORTHOPAED 15 [facility] MINUT[facility] OFFICE 08931 [facility] [place] [place] ORTHOPAED 15 [facility] MINUT[facility] OFFICE 04922 [facility] [place] [place] V[place] ORTHOPAED 15 [facility] MINUTES [facility] [place] [facility] [place] - 1 1 [facility] OFFICE 74336 JEHOVAH'S WITNESS LISETH KIRSTIE OUTPATIEN 1 1 CARDIOTHO T NEW 45 RACIC MINUTES SURGI OFFICE 27046 [facility] OUTPATIEN 1 1 [place] MANJIT T NEW 30 ORTHOPAED MINUTES [facility]
--- OUTSIDE RECORDS SUMMARY | 2017-03-10 18:30 | External Medical Summary Rpt ---
Author Author , LIZETH AYERS Address Unknown Phone [email or web address] Immunization Name Date Rout CVX Reac Dose Comm Prov Is Faci e tion ent ider Refu lity Give sed n Tdap 03-2 115 999 Hist H149 No H149 , 5-20 oric Adso 08 al rbed Info rmat ion - Sour ce Unsp ecif ied
[2017-03-10 18:34] LABS: HEMOGLOBIN 15.1 g/dL (12.2-16.2); LYMPH # 1.6 K/mm3 (0.7-4.5); LYMPH % 16.5 % (10-50.0)
--- NOTE | 2017-03-10 19:19 | Emergency Room Report ---
History of Present Illness Time Seen by [id number] Presenting Problem in Triage Pt arrived:Walked Presenting Problem:SWELLING AND REDNESS TO R EYE LID AND FOREHEAD AREA ABOVE R EYE. PT HAS POSSIBLE INSECT BITE TO R HIP AREA, REDNESS NOTED AROUND AREA, PT STATES "POPPED" AREA WITH A NEEDLE THIS MORNING. 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 N Clinical Suspician of Infection? N Mental Status: 1 - Regular (Normal Baseline) Sepsis Risk:Low Sepsis Risk Have you (or family members/close friends) recently traveled outside the [place]? N If Yes, where/when: Have you had exposure to infectious disease within the past month? N TB? Other? Specify: Source patient, RN notes reviewed, family, RN/MD Exam Limitations no limitations Comment This is a 51-year-old lady arriving to the emergency room with redness and pain over the RIGHT face, swelling of both RIGHT upper and RIGHT lower eyelids, worse since yesterday. She was seen in this emergency yesterday with a impacted right ear canal, which is no better, after undergoing RIGHT ear canal lavage. At that time she has a mild swelling of RIGHT eyelids as well as a faint RIGHT face, which today's a lot worse, preventing the RIGHT dilates from opening. She also the inset bite on the LEFT buttock which daughter has punctured with a pair of scissors, drained pus and now improving. ALLERGIES Coded Allergies: No Known Allergies (03/12/16) Home Medications Active Scripts Atorvastatin Calcium (Atorvastatin) 80 MG PO QHS #30 TABLET Ref 3 Prov: 03/13/16 Amoxicillin/Potassium Clav (Augmentin 875-125 Tablet) 1 EACH PO BID #20 TAB Prov: 03/09/17 CIPROFLOXACIN HCL/DEXAMETH (Ciprodex Otic Suspension) 4 DROP OT BID #1 BOT Prov: 03/09/17 Reported Medications ASPIRIN (Aspirin) 81 MG PO DAILY Trazodone Hcl (Trazodone HCl) 200 MG PO QHS Omeprazole (Prilosec 40mg Cap) 40 MG PO QHS ATENOLOL (Atenolol 50MG) 50 MG PO DAILY Alprazolam (Xanax) 2 MG PO TID Cholecalciferol (Vitamin D) 5,000 IUNITS PO WEEKLY Brimonidine Tartrate (Brimonidine 0.2% Ophth Soln 5ML Bottle) 5 ML OP MICHELLE MULTIVITAMIN (One Daily Multivitamin) 1 TAB PO DAILY History Medical History General CAD? No Angina: Yes [place]: No Hypertension? Yes Hyperlipidemia? Yes CHF? No DVT? No PE? No COPD? No Asthma? No Anemia? No GERD? No Gastric ulcers? No GI Bleed? No Hernia? No Thyroid Problems? No Hypothyroidism? No CVA? No Seizures? No Diabetes? No Renal Insuffiency? No End Stage Renal Disease? No UTI? Yes Stones? Yes BPH? No GB Disease: No Nephritic Syndrome? No Asplenia? No Hepatitis? No Sickle Cell Disease? No Arthritis? No Migraines? No Cataracts? No Glaucoma? No MRSA? No HIV? No TB? No Anxiety? No Depression? No Cancer? Yes Site: SKIN More? 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 Hx LMP N/A Family History Family Hx Diabetes Yes CAD Yes Hypertension Yes Hyperlipidemia Yes Cancer No TB No Social History Smoking Hx Smoker: Current Some Day Smoker Tobacco: Yes Type Cigarettes Packs/day < 1 Pack Alcohol Alcohol: No Review of Systems All Other Systems Reviewed and Negative Skin rash (RIGHT face) Physical Exam Vital Signs Vital Signs Date Time Temp Pulse Resp B/P Pulse O2 O2 Flow FiO2 Ox Delivery Rate 03/10 1916 61 18 113/61 97 03/10 1909 18 03/10 1900 64 18 104/64 97 03/10 1745 97.7 70 18 142/67 97 General Appearance normal appearance, WD/WN, moderate distress Eye Exam - bilateral eye PERRL, bilateral eye EOMI, bilateral eye eyelid inflammation, bilateral eye other (normal fundi) Ear, Nose, Throat hearing grossly normal, normal pharynx, right ear canal significantly improved, marbleizing machine tender, mild faint erythema. Respiratory Status Yes: trachea midline, chest symmetrical, non tender chest. No: respiratory distress. Lung Sounds bilateral: normal breath sounds, lungs clear. Cardiovascular normal exam, regular rate/rhythm, no peripheral edema, no gallop, no JVD, no murmur, no rub, normal peripheral pulses Gastrointestinal normal bowel sounds, normal exam, non tender, soft, no organomegaly Extremities normal range of motion, normal inspection, LEFT buttock 5 x 5 erythematous area, with central depression, consistent with patient's account of a ruptured boil, and drainage. Neurologic alert, mixer diamond powder II-XII nml as tested, normal exam, oriented x 3 Mental status normal mood/affect Skin intact, warm/dry, forehead, RIGHT cheek, RIGHT upper as well as RIGHT lower eyelids are tender to touch, erythematous, swollen. Medical Decision Making LABS/Meds/Orders Pt receiving controlled substance in ED? No Comment The patient already had a CT scan without contrast of the maxillofacial bones yesterday, and she is on day number 2 of oral antibiotics, Augmentin as well as otic suspension, Ciprodex. I think she has dacryocystitis, basal her clinical examination, tearing down her cheek, on the RIGHT side. RIGHT medial inner upper/lower eyelids are the most tender, and this appears to be the source inflammation. Advised patient to follow up with Seda courtney/Dr. Alvarado Rouse as soon as possible, ideally tomorrow morning. Vision advised to continue her Ciprodex, Augmentin, will add exploring ophthalmic suspension, as well. Results/Orders Laboratory Tests 03/10/17 1830: Sodium 141, Potassium 3.6, Chloride 106, Carbon Dioxide 26, BUN 11, Creatinine 1.0, Estimated Creat Clear 105, Estimated GFR (MDRD) 58 L, Glucose 99, Calcium 8.6, Total Bilirubin 0.7, AST 19, ALT 31, Alkaline Phosphatase 74, Total Protein 6.9, Albumin 3.5, Globulin 3.4 H, Albumin/Globulin Ratio 1.0 L, WBC 9.4, RBC 4.75, Hgb 15.1, Hct 42.8, MCV 90.2, RDW 13.2, Plt Count 147, MPV 9.2, Gran % 68.7, Gran # 6.5, Lymphocytes % 16.5, Monocytes % 7.2, Eosinophils % 7.1, Basophils % 0.5, Lymphocytes # 1.6, Monocytes # 0.7, Eosinophils # 0.7 H, Basophils # 0.1, PUBS MCHC 35.3, [facility] 31.8 H Current Medication Orders Sig/Ponce Start time Last Medication Dose Route Stop Time Status Admin Neomycin/Polymyxin/ 0.1 ML QID 03/10 2100 CAN Hydrocortisone OP Neomycin/Polymyxin/ 0.1 ML ONCE ONE 03/10 1930 DC Hydrocortisone OP 03/10 193 Sodium Chloride 250 ML .STK-MED ONE 03/10 1859 DC IV Vancomycin HCl 0 .STK-MED ONE 03/10 1859 DC .ROUTE Morphine Sulfate 0 .STK-MED ONE 03/10 1858 DC .ROUTE Ondansetron HCl 0 .STK-MED ONE 03/10 1858 DC .ROUTE Morphine Sulfate 4 MG ONCE ONE 03/10 184 DC 03/10 IV 03/10 1846 190 Ondansetron HCl 4 MG ONCE ONE 03/10 184 DC 03/10 IV 03/10 1846 190 Vancomycin HCl 2,000 MG ONCE ONE 03/10 1830 [facility]Dr 03/10 Sodium Chloride 250 ML IV 03/10 Miscellaneous 1 EACH CONSULT PHARMACY 03/10 181 AC Information * 03/11 0603 Sodium Chloride 10 ML PRN PRN 03/10 1815 AC IV 03/11 180 Orders Procedure Date/time Status IV SALINE LOCK 03/10 1804 Active CBC WITH AUTO DIFF 03/10 1804 Complete CHEM 12 PROFILE 03/10 1804 Complete Departure Departure Time of Disposition 1954 Disposition DC Home or Self Care(routine) Clinical Impression Primary Impression: Dacryocystitis, acute Qualifiers: Laterality: right Qualified Code: H04.321 - Acute dacryocystitis of right lacrimal passage Secondary Impressions: Cellulitis, face Condition STABLE Referrals [facility] tomorrow Patient Instructions DI for Dacryocystitis, Orbital Cellulitis Additional Instructions Please continue the antibiotics prescribed yesterday, Augmentin 875 mg 2x/day and Ciprodex otic suspension. In addition, please find attached a prescription for eye drops, Cortisporin eye solution. Please follow-up with Dr. Alvarado Rouse at [facility] tomorrow morning. Discharge Counseling Counseled pt/family regarding diagnosis, medications/RX, home care, follow up needs Comment Please continue the antibiotics prescribed yesterday, Augmentin 875 mg 2x/day and Ciprodex otic suspension. In addition, please find attached a prescription for eye drops, Cortisporin eye solution. Please follow-up with Dr. Alvarado Rouse at [facility] tomorrow morning. ED Critical Care Critical Care No at [id number]
--- NOTE | 2017-03-10 19:19 | Emergency Room Report ---
History of Present Illness Time Seen by [id number] Presenting Problem in Triage Pt arrived:Walked Presenting Problem:SWELLING AND REDNESS TO R EYE LID AND FOREHEAD AREA ABOVE R EYE. PT HAS POSSIBLE INSECT BITE TO R HIP AREA, REDNESS NOTED AROUND AREA, PT STATES "POPPED" AREA WITH A NEEDLE THIS MORNING. 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 N Clinical Suspician of Infection? N Mental Status: 1 - Regular (Normal Baseline) Sepsis Risk:Low Sepsis Risk Have you (or family members/close friends) recently traveled outside the [place]? N If Yes, where/when: Have you had exposure to infectious disease within the past month? N TB? Other? Specify: Source patient, RN notes reviewed, family, RN/MD Exam Limitations no limitations Comment This is a 51-year-old lady arriving to the emergency room with redness and pain over the RIGHT face, swelling of both RIGHT upper and RIGHT lower eyelids, worse since yesterday. She was seen in this emergency yesterday with a impacted right ear canal, which is no better, after undergoing RIGHT ear canal lavage. At that time she has a mild swelling of RIGHT eyelids as well as a faint RIGHT face, which today's a lot worse, preventing the RIGHT dilates from opening. She also the inset bite on the LEFT buttock which daughter has punctured with a pair of scissors, drained pus and now improving. ALLERGIES Coded Allergies: No Known Allergies (03/12/16) Home Medications Active Scripts Atorvastatin Calcium (Atorvastatin) 80 MG PO QHS #30 TABLET Ref 3 Prov: 03/13/16 Amoxicillin/Potassium Clav (Augmentin 875-125 Tablet) 1 EACH PO BID #20 TAB Prov: 03/09/17 CIPROFLOXACIN HCL/DEXAMETH (Ciprodex Otic Suspension) 4 DROP OT BID #1 BOT Prov: 03/09/17 Reported Medications ASPIRIN (Aspirin) 81 MG PO DAILY Trazodone Hcl (Trazodone HCl) 200 MG PO QHS Omeprazole (Prilosec 40mg Cap) 40 MG PO QHS ATENOLOL (Atenolol 50MG) 50 MG PO DAILY Alprazolam (Xanax) 2 MG PO TID Cholecalciferol (Vitamin D) 5,000 IUNITS PO WEEKLY Brimonidine Tartrate (Brimonidine 0.2% Ophth Soln 5ML Bottle) 5 ML OP MICHELLE MULTIVITAMIN (One Daily Multivitamin) 1 TAB PO DAILY History Medical History General CAD? No Angina: Yes [place]: No Hypertension? Yes Hyperlipidemia? Yes CHF? No DVT? No PE? No COPD? No Asthma? No Anemia? No GERD? No Gastric ulcers? No GI Bleed? No Hernia? No Thyroid Problems? No Hypothyroidism? No CVA? No Seizures? No Diabetes? No Renal Insuffiency? No End Stage Renal Disease? No UTI? Yes Stones? Yes BPH? No GB Disease: No Nephritic Syndrome? No Asplenia? No Hepatitis? No Sickle Cell Disease? No Arthritis? No Migraines? No Cataracts? No Glaucoma? No MRSA? No HIV? No TB? No Anxiety? No Depression? No Cancer? Yes Site: SKIN More? 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 LMP N/A Family History Family Hx Diabetes Yes CAD Yes Hypertension Yes Hyperlipidemia Yes Cancer No TB No Social History Smoking Hx Smoker: Current Some Day Smoker Tobacco: Yes Type Cigarettes Packs/day < 1 Pack Alcohol Alcohol: No Review of Systems All Other Systems Reviewed and Negative Skin rash (RIGHT face) Physical Exam Vital Signs Vital Signs Date Time Temp Pulse Resp B/P Pulse O2 O2 Flow FiO2 Ox Delivery Rate 03/10 1916 61 18 113/61 97 03/10 1909 18 03/10 1900 64 18 104/64 97 03/10 1745 97.7 70 18 142/67 97 General Appearance normal appearance, WD/WN, moderate distress Eye Exam - bilateral eye PERRL, bilateral eye EOMI, bilateral eye eyelid inflammation, bilateral eye other (normal fundi) Ear, Nose, Throat hearing grossly normal, normal pharynx, right ear canal significantly improved, 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 Respiratory Status Yes: trachea midline, chest symmetrical, non tender chest. No: respiratory distress. Lung Sounds bilateral: normal breath sounds, lungs clear. Cardiovascular normal exam, regular rate/rhythm, no peripheral edema, no gallop, no JVD, no murmur, no rub, normal peripheral pulses Gastrointestinal normal bowel sounds, normal exam, non tender, soft, no organomegaly Extremities normal range of motion, normal inspection, LEFT buttock 5 x 5 erythematous area, with central depression, consistent with patient's account of a ruptured boil, and drainage. Neurologic alert, health education specialist II-XII nml as tested, normal exam, oriented x 3 Mental status normal mood/affect Skin intact, warm/dry, forehead, RIGHT cheek, RIGHT upper as well as RIGHT lower eyelids are tender to touch, erythematous, swollen. Medical Decision Making LABS/Meds/Orders Pt receiving controlled substance in ED? No Comment The patient already had a CT scan without contrast of the maxillofacial bones yesterday, and she is on day number 2 of oral antibiotics, Augmentin as well as otic suspension, Ciprodex. I think she has dacryocystitis, basal her clinical examination, tearing down her cheek, on the RIGHT side. RIGHT medial inner upper/lower eyelids are the most tender, and this appears to be the source inflammation. Advised patient to follow up with S[facility] courtney/Dr. Alvarado Rouse as soon as possible, ideally tomorrow morning. Vision advised to continue her Ciprodex, Augmentin, will add exploring ophthalmic suspension, as well. Results/Orders Laboratory Tests 03/10/17 1830: Sodium 141, Potassium 3.6, Chloride 106, Carbon Dioxide 26, BUN 11, Creatinine 1.0, Estimated Creat Clear 105, Estimated GFR (MDRD) 58 L, Glucose 99, Calcium 8.6, Total Bilirubin 0.7, AST 19, ALT 31, Alkaline Phosphatase 74, Total Protein 6.9, Albumin 3.5, Globulin 3.4 H, Albumin/Globulin Ratio 1.0 L, WBC 9.4, RBC 4.75, Hgb 15.1, Hct 42.8, MCV 90.2, RDW 13.2, Plt Count 147, MPV 9.2, Gran % 68.7, Gran # 6.5, Lymphocytes % 16.5, Monocytes % 7.2, Eosinophils % 7.1, Basophils % 0.5, Lymphocytes # 1.6, Monocytes # 0.7, Eosinophils # 0.7 H, Basophils # 0.1, PUBS MCHC 35.3, [facility] 31.8 H Current Medication Orders Sig/Ponce Start time Last Medication Dose Route Stop Time Status Admin Neomycin/Polymyxin/ 0.1 ML QID 03/10 2100 CAN Hydrocortisone OP Neomycin/Polymyxin/ 0.1 ML ONCE ONE 03/10 1930 DC Hydrocortisone OP 03/10 193 Sodium Chloride 250 ML .STK-MED ONE 03/10 1859 DC IV Vancomycin HCl 0 .STK-MED ONE 03/10 1859 DC .ROUTE Morphine Sulfate 0 .STK-MED ONE 03/10 1858 DC .ROUTE Ondansetron HCl 0 .STK-MED ONE 03/10 1858 DC .ROUTE Morphine Sulfate 4 MG ONCE ONE 03/10 184 DC 03/10 IV 03/10 1846 190 Ondansetron HCl 4 MG ONCE ONE 03/10 184 DC 03/10 IV 03/10 1846 190 Vancomycin HCl 2,000 MG ONCE ONE 03/10 1830 CKDr 03/10 Sodium Chloride 250 ML IV 03/10 Miscellaneous 1 EACH CONSULT PHARMACY 03/10 181 AC Information * 03/11 0603 Sodium Chloride 10 ML PRN PRN 03/10 1815 AC IV 03/11 180 Orders Procedure Date/time Status IV SALINE LOCK 03/10 1804 Active CBC WITH AUTO DIFF 03/10 1804 Complete CHEM 12 PROFILE 03/10 1804 Complete Departure Departure Time of Disposition 1954 Disposition DC Home or Self Care(routine) Clinical Impression Primary Impression: Dacryocystitis, acute Qualifiers: Laterality: right Qualified Code: H04.321 - Acute dacryocystitis of right lacrimal passage Secondary Impressions: Cellulitis, face Condition STABLE Referrals [facility] tomorrow Patient Instructions DI for Dacryocystitis, Orbital Cellulitis Additional Instructions Please continue the antibiotics prescribed yesterday, Augmentin 875 mg 2x/day and Ciprodex otic suspension. In addition, please find attached a prescription for eye drops, Cortisporin eye solution. Please follow-up with Dr. Alvarado Rouse at [facility] tomorrow morning. Discharge Counseling Counseled pt/family regarding diagnosis, medications/RX, home care, follow up needs Comment Please continue the antibiotics prescribed yesterday, Augmentin 875 mg 2x/day and Ciprodex otic suspension. In addition, please find attached a prescription for eye drops, Cortisporin eye solution. Please follow-up with Dr. Alvarado Rouse at [facility] tomorrow morning. ED Critical Care Critical Care No at [id number]
[2017-03-10 21:41] VITALS: BP 114/60
== END 2017-03-10 21:42 | disposition home or self-care (01) ==
LOC: ER 17:38
PROVIDERS: Emergency Medicine
DX: H04.321 Acute dacryocystitis of right lacrimal passage (principal); H05.011 Cellulitis of right orbit; I10 Essential (primary) hypertension; Z72.0 Tobacco use
CPT/HCPCS: J2405; J3370

== ENCOUNTER → 2017-03-13 | Outpatient (CLI) | payer MEDICARE, MEDICAID | LOC: LAB 16:14 | DX: L03.116 Cellulitis of left lower limb (principal) ==